=== PATIENT | male | born 1960 | race Caucasian/White ===

== ENCOUNTER 2017-03-07 17:31 | Inpatient (IN) | payer MEDICARE, MEDICAID ==
--- NOTE | 2017-03-07 17:42 | ER Document Report ---
ED Respiratory Problem - General Chief Complaint: Shortness Of Breath Stated Complaint: SHORTNESS OF BREATH Time Seen by Provider: 03/07/17 17:37 Notes: The patient is a 56-year-old male, past medical history COPD (has O2 at home, wears 4L O2 sometimes), coronary artery disease, congestive heart failure with ejection fraction of 25% status post defibrillator placement, current smoker, REBECCA (sometimes sleeps with CPAP), presents by EMS in respiratory distress. He was found to be low 80% on room air on his home 4L O2. EMS placed him on BiPAP with improvement of his respiratory status. They also provided him with a sublingual nitro with some improvement. Patient is a confirmed DNR and DNI ( paperwork at bedside). said that patient is off his Lasix for the past [address] Merida switched him to Metolazone 2.5 mg and he cannot afford the $50 co-pay. Patient denies chest pain, fevers, cough, calf swelling, nausea , vomiting or abdominal pain. TRAVEL OUTSIDE OF THE [place] IN LAST 30 DAYS: No - Related Data Allergies/Adverse Reactions: metformin [Metformin] Allergy (Unknown, Verified 07/02/16 21:11) Penicillins Allergy (Verified 07/02/16 21:11) ziprasidone HCl [From Geodon] Allergy (Verified 07/02/16 21:11) oxycodone HCl [From Percocet] Adverse Reaction (Mild, Verified 07/02/16 21:11) sleepy Home Medications: Current Home Medications Benztropine Mesylate [Cogentin 1 mg Tablet] 1 mg PO Q12 03/07/17 [History] Budesonide/Formoterol Fumarate [Symbicort HFA 80-4.5 mcg Inhaler 6.9 gm] 0 dose IH .SEE COMMENTS 03/07/17 [History] Carvedilol [Coreg 25 mg Tablet] 25 mg PO Q12 03/07/17 [History] Clopidogrel Bisulfate [Plavix 75 mg Tablet] 75 mg PO DAILY 03/07/17 [History] Doxepin HCl 150 mg PO QHS 03/07/17 [History] Fenofibrate Nanocrystallized [Fenofibrate] 145 mg PO DAILY 03/07/17 [History] Insulin Glargine,Hum.rec.anlog [Lantus Insulin 100 Unit/1 ml 10 ml] 0 units SQ .SEE COMMENTS 03/07/17 [History] Lamotrigine [Lamictal] 400 mg PO QHS 03/07/17 [History] Losartan Potassium [Cozaar 25 mg Tablet] 25 mg PO DAILY 03/07/17 [History] Meloxicam [Mobic 7.5 mg Tablet] 7.5 mg PO Q12 03/07/17 [History] Omeprazole 20 mg PO DAILY 03/07/17 [History] Pravastatin Sodium [Pravachol] 20 mg PO DAILY 03/07/17 [History] Quetiapine Fumarate [Seroquel] 200 mg PO QHS 03/07/17 [History] Ropinirole HCl [Requip] 0.5 mg PO Q8 03/07/17 [History] Trazodone HCl [Desyrel] 100 mg PO QHS 03/07/17 [History] Umeclidinium [place] [Incruse Ellipta] 0 dose IH .SEE COMMENTS 03/07/17 [History ] Past Medical History - General Information source: Patient, Emergency Med Personnel - Social History Smoking Status: Current Every Day Smoker Family History: Reviewed & Not Pertinent - Past Medical History Cardiac Medical History: Reports: Hx Congestive Heart Failure, Hx Heart Attack, Hx Hypercholesterolemia, Hx Hypertension Pulmonary Medical History: Reports: Hx Bronchitis, Hx COPD, Hx Sleep Apnea Endocrine Medical History: Reports: Hx Diabetes Mellitus Type 2 GI Medical History: Reports: Hx Gastroesophageal Reflux Disease Psychiatric Medical History: Reports: Hx Dementia, Hx Depression, Hx Post Traumatic Stress Disorder, Hx Schizophrenia - schizoeffective d/o Past Surgical History: Reports: Hx Cardiac Surgery - stents, defibrillator - Immunizations Hx Diphtheria, Pertussis, Tetanus Vaccination: Yes Review of Systems - Review of Systems Notes: REVIEW OF SYSTEMS: CONSTITUTIONAL: -fevers, -chills EENT: -eye pain, -difficulty swallowing, -nasal congestion CARDIOVASCULAR:-chest pain, -syncope. RESPIRATORY: -cough, +SOB GASTROINTESTINAL: -abdominal pain, - nausea, -vomiting, -diarrhea GENITOURINARY: -dysuria, -hematuria MUSCULOSKELETAL: -back pain, -neck pain SKIN: -rash or skin lesions. HEMATOLOGIC: -easy bruising or bleeding. LYMPHATIC: -swollen, enlarged glands. NEUROLOGICAL: -altered mental status or loss of consciousness, -headache, - neurologic symptoms PSYCHIATRIC: -anxiety, -depression. ALL OTHER SYSTEMS REVIEWED AND NEGATIVE. Physical Exam - Vital signs Vitals: Temp 98.2 F 03/07/17 17:31 - Notes Notes: PHYSICAL EXAMINATION: GENERAL: Well-appearing, well-nourished and in no acute distress. HEAD: Atraumatic, normocephalic. EYES: Pupils equal round and reactive to light, extraocular movements intact, sclera anicteric, conjunctiva are normal. ENT: nares patent, oropharynx clear without exudates. Moist mucous membranes. NECK: Normal range of motion, supple without lymphadenopathy LUNGS: Tachypnea. Decreased breath sounds in all lung spence. HEART: Regular rate and rhythm without murmurs ABDOMEN: Soft, nontender, normoactive bowel sounds. No guarding, no rebound. No masses appreciated. EXTREMITIES: 1+ peripheral edema. Normal range of motion. No cyanosis. NEUROLOGICAL: Cranial nerves grossly intact. Normal speech, normal gait. Normal sensory and motor exams. PSYCH: Normal mood, normal affect. SKIN: Warm, Dry, normal turgor, no rashes or lesions noted. Course - Re-evaluation Re-evalutation: Patient seen immediately on arrival due to respiratory distress. Patient placed on BiPAP with improvement of his respiratory status. He received nitro by EMS. Patient's blood pressure 120/90 on arrival, so will hold off on further nitro. There are rales on exam and he has 1+ pitting edema peripherally. He has not taken his Lasix for the past 30 days. His pro-BNP is very elevated, above his baseline, but the rest of his labs do not show any concerning abnormalities. Chest x-ray shows mild CHF. His 40 mg Lasix was provided to him IV. Patient's x-ray does not show any infiltrate and his VBG is normal. Patient confirms that he is DNR and DNI. 03/07/17 20:[address] Sotelo (Hospitalist) and he is requesting repeat troponin. Patient did not have any chest pain and EKG does not show any active ischemia. 03/07/17 22:51 Repeat troponin is negative. Spoke to Dr. Sotelo and will admit patient to [facility] as Inpatient. - Vital Signs Vital signs: Temp Pulse Resp BP Pulse Ox 98.2 F 12 120/96 H 99 03/07/17 17:31 03/07/17 21:01 03/07/17 21:01 03/07/17 21:01 - Laboratory Result Diagrams: 03/07/17 17:43 03/07/17 17:43 Laboratory results interpreted by me: 03/07/17 03/07/17 03/07/17 17:43 17:43 17:43 RBC 4.31 L RDW 17.0 H PT 17.4 H BUN 32 H Glucose 157 H Total Bilirubin 1.6 H Direct Bilirubin 1.2 H ALT 99 H NT-Pro-B Natriuret Pep 03/07/17 17:43 RBC RDW PT BUN Glucose Total Bilirubin Direct Bilirubin ALT NT-Pro-B Natriuret Pep 13895 H - Diagnostic Test Radiology reviewed: Image reviewed, Reports reviewed Radiology results interpreted by me: CXR: mild CHF - EKG Interpretation by Me EKG shows normal: Sinus rhythm, Perry, Intervals, QRS Complexes Rate: Normal When compared to previous EKG there are: No significant change Critical Care Note - Critical Care Note Total time excluding time spent on procedures (mins): 45 Discharge - Discharge Clinical Impression: Hypoxia Acute exacerbation of CHF (congestive heart failure) Qualifiers: Congestive heart failure type: unspecified congestive heart failure type Qualified Code(s): I50.9 - Heart failure, unspecified Condition: Stable Disposition: ADMITTED INPATIENT Admitting Provider: Hospitalist - Deepak Unit Admitted: IMCU Referrals: FLASH STALLWORTH MD [Primary Care Provider] - Follow up as needed
[2017-03-07 17:57] LABS: ABSOLUTE BASOPHILS # (AUTO) 0.1 10^3/uL (0.0-0.2); ABSOLUTE EOSINOPHILS # (AUTO) 0.1 10^3/uL (0.0-0.6); ABSOLUTE LYMPHOCYTES (AUTO) 2.3 10^3/uL (0.5-4.7); ABSOLUTE MONOCYTES (AUTO) 0.8 10^3/uL (0.1-1.4); ABSOLUTE NEUT (AUTO) 4.4 10^3/uL (1.7-8.2); BASOPHILS % (AUTO) 1.1 % (0-2); EOSINOPHILS % (AUTO) 1.8 % (0-6); HEMATOCRIT 41.2 % (37.9-51.0); HEMOGLOBIN 13.7 g/dL (13.5-17.0); HGB HCT DIFFERENCE -0.1; LYMPHOCYTES % (AUTO) 29.6 % (13-45); MEAN CORPUSCULAR HEMOGLOBIN 31.8 pg (27.0-33.4); MEAN CORPUSCULAR HGB CONC 33.2 g/dL (32.0-36.0); MEAN CORPUSCULAR VOLUME 96 fl (80-97); MONOCYTES % (AUTO) 10.1 % (3-13); RED BLOOD COUNT 4.31 10^6/uL (4.35-5.55); SEGMENTED NEUTROPHILS % (AUTO) 57.4 % (42-78); WHITE BLOOD COUNT 7.7 10^3/uL (4.0-10.5)
[2017-03-07 18:09] LABS: PROTHROMBIN TIME 17.4 SEC (11.4-15.4)
[2017-03-07 18:13] LABS: ALANINE AMINOTRANSFERASE 99 U/L (21-72); ALBUMIN 3.5 g/dL (3.5-5.0); ALKALINE PHOSPHATASE 46 U/L (38-126); ANION GAP 8 (5-19); ASPARTATE AMINO TRANSFERASE 39 U/L (17-59); BILIRUBIN,DIRECT 1.2 mg/dL (0.0-0.4); BILIRUBIN,TOTAL 1.6 mg/dL (0.2-1.3); BLOOD UREA NITROGEN 32 mg/dL (7-20); CALCIUM 8.9 mg/dL (8.4-10.2); CARBON DIOXIDE 25 mmol/L (22-30); CHLORIDE 104 mmol/L (98-107); CREATINE KINASE 108 U/L (55-170); GLUCOSE 157 mg/dL (75-110); LIPASE 47.2 U/L (23-300); POTASSIUM 4.5 mmol/L (3.6-5.0); TOTAL PROTEIN 6.5 g/dL (6.3-8.2)
[2017-03-07 18:27] LABS: TROPONIN I < 0.012 ng/mL
[2017-03-07] MEDS ORDERED: FUROSEMIDE INJ/PF 40 MG/4 ML SDV IV ONE (18:55)
[2017-03-07 19:15] LABS: VENOUS BLOOD BASE EXCESS -1.5 mmol/L; VENOUS BLOOD HCO3 22.6 mmol/L (20-32); VENOUS BLOOD PCO2 36.1 mmHg (35-63); VENOUS BLOOD PH 7.41 (7.30-7.42)
--- NOTE | 2017-03-07 20:19 | EKG REPORT ---
SEVERITY:- ABNORMAL ECG - SINUS RHYTHM FIRST DEGREE AV BLOCK PROBABLE LEFT ATRIAL ABNORMALITY ABNORMAL T, CONSIDER ISCHEMIA, LATERAL LEADS : Confirmed by: Lane Leon MD 07-Mar-2017 20:19:07
[2017-03-07] MEDS ORDERED: MAGNESIUM HYDROXIDE SUSP 30 ML UDCUP PO PRN (22:49)
[2017-03-07] MEDS ORDERED: ENALAPRILAT DIHYDRATE INJ/PF 1.25 MG/1 ML SDV IV PRN (22:49)
[2017-03-07] MEDS ORDERED: MAG HYDROX/AL HYDROX/SIMETH SUSP 30 ML UDCUP PO PRN (22:49)
[2017-03-07] MEDS ORDERED: DEXTROSE 50%-WATER 25 GM/50 ML DISP.SYRIN IV PRN ×2 (22:54)
[2017-03-07] MEDS ORDERED: GLUCAGON,HUMAN RECOMB 1 MG INJ IM PRN (22:54)
[2017-03-07] MEDS ORDERED: DEXTROSE 40% GEL 15 GM TUBE PO PRN ×2 (22:54)
[2017-03-07] MEDS ORDERED: DOXEPIN HCL 25 MG CAPSULE PO SCH (23:00)
--- NOTE | 2017-03-08 03:33 | PDOC H&P ---
History of Present Illness Admission Date/PCP: 03/07/17 22:49 FLASH STALLWORTH MD Patient complains of: Shortness of breath History of Present Illness: NAVARRO TEAGUE is a 56 year old male with a past medical history of Parkinson's disease, oxygen dependent COPD, end-stage congestive heart failure with an ejection fraction of 25% status post AICD, depression, anxiety, polypharmacy and ongoing tobacco dependence. Patient been in his usual state of health until approximately 3 days ago noted exceptional worsening of baseline shortness of breath prompting him to seek evaluation in the emergency room he he is hypoxic and a BNP of 13,000. Denies chest pain nausea vomiting but has shortness of breath at rest. Patient admits recent change in medications as he is off Lasix and metolazone as he is unable to afford the co-pay. Past Medical History Cardiac Medical History: Reports: Congestive Heart Failure, Myocardial Infarction, Hyperlipidema, Hypertension Pulmonary Medical History: Reports: Bronchitis, Chronic Obstructive Pulmonary Disease (COPD), Sleep Apnea Endocrine Medical History: Reports: Diabetes Mellitus Type 2 GI Medical History: Reports: Gastroesophageal Reflux Disease Psychiatric Medical History: Reports: Dementia, Depression, Post Traumatic Stress Disorder, Tobacco Dependency, Other Psychiatric History Note: Polypharmacy Past Surgical History Past Surgical History: Reports: Pacemaker Social History Information Source: Patient, Emergency Med Personnel, [facility] Records Lives with: Spouse/Significant other Smoking Status: Current Every Day Smoker Cigarettes Packs Per Day: 2 Frequency of Alcohol Use: Occasional Hx Recreational Drug Use: No Drugs: None, Other - Opiate 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 - Advance Directive Resuscitation Status: DNR/DNI Family History Family History: COPD, Hypertension Parental Family History Reviewed: Yes Children Family History Reviewed: Yes Sibling(s) Family History Reviewed.: Yes Medication/Allergy Home Medications: Benztropine Mesylate [Cogentin 1 mg Tablet] 1 mg PO Q12 03/07/17 Budesonide/Formoterol Fumarate [Symbicort HFA 80-4.5 mcg Inhaler 6.9 gm] 0 dose IH .SEE COMMENTS 03/07/17 Carvedilol [Coreg 25 mg Tablet] 25 mg PO Q12 03/07/17 Clopidogrel Bisulfate [Plavix 75 mg Tablet] 75 mg PO DAILY 03/07/17 Doxepin HCl 150 mg PO QHS 03/07/17 Fenofibrate Nanocrystallized [Fenofibrate] 145 mg PO DAILY 03/07/17 Insulin Glargine,Hum.rec.anlog [Lantus Insulin 100 Unit/1 ml 10 ml] 0 units SQ .SEE COMMENTS 03/07/17 Lamotrigine [Lamictal] 400 mg PO QHS 03/07/17 Losartan Potassium [Cozaar 25 mg Tablet] 25 mg PO DAILY 03/07/17 Meloxicam [Mobic 7.5 mg Tablet] 7.5 mg PO Q12 03/07/17 Omeprazole 20 mg PO DAILY 03/07/17 Pravastatin Sodium [Pravachol] 20 mg PO DAILY 03/07/17 Quetiapine Fumarate [Seroquel] 200 mg PO QHS 03/07/17 Ropinirole HCl [Requip] 0.5 mg PO Q8 03/07/17 Trazodone HCl [Desyrel] 100 mg PO QHS 03/07/17 Umeclidinium [place] [Incruse Ellipta] 0 dose IH .SEE COMMENTS 03/07/17 Allergies/Adverse Reactions: metformin [Metformin] Allergy (Unknown, Verified 07/02/16 21:11) Penicillins Allergy (Verified 07/02/16 21:11) ziprasidone HCl [From Geodon] Allergy (Verified 07/02/16 21:11) oxycodone HCl [From Percocet] Adverse Reaction (Mild, Verified 07/02/16 21:11) sleepy Review of Systems ROS unobtainable: Due to mental status, Other - Shortness of breath on BiPAP Physical Exam Vital Signs: Temp Pulse Resp BP Pulse Ox 97.5 F 89 23 H 124/87 H 98 03/08/17 00:37 03/08/17 01:15 03/08/17 00:51 03/08/17 00:37 03/08/17 00:51 Intake & Output 03/06/17 03/07/17 03/08/17 11:59 11:59 11:59 Weight 88.6 kg General appearance: PRESENT: disheveled, severe distress Head exam: PRESENT: atraumatic, normocephalic Eye exam: PRESENT: conjunctiva pink, EOMI, PERRLA. ABSENT: scleral icterus Ear exam: PRESENT: normal external ear exam Mouth exam: PRESENT: moist, tongue midline Neck exam: PRESENT: JVD. ABSENT: carotid bruit, lymphadenopathy, thyromegaly Respiratory exam: PRESENT: accessory muscle use, crackles, decreased breath sounds, prolonged expiratory phas, retraction, tachypnea. ABSENT: chest wall tenderness, clear to auscultation fermín Cardiovascular exam: PRESENT: RRR. ABSENT: diastolic murmur, rubs, systolic murmur Pulses: PRESENT: normal dorsalis pedis pul Vascular exam: PRESENT: normal capillary refill GI/Abdominal exam: PRESENT: ascites, hypoactive bowel sounds, normal bowel sounds, soft. ABSENT: distended, guarding, mass, organolmegaly, rebound, tenderness Rectal exam: PRESENT: deferred Extremities exam: PRESENT: +1 edema Neurological exam: PRESENT: altered, awake, oriented to person, CN II-XII grossly intact Psychiatric exam: PRESENT: appropriate affect, normal mood. ABSENT: homicidal ideation, suicidal ideation Skin exam: PRESENT: dry, intact, warm. ABSENT: cyanosis, rash Assessment & Plan - Diagnosis (1) Acute exacerbation of CHF (congestive heart failure) Qualifiers: Congestive heart failure type: unspecified congestive heart failure type Qualified Code(s): I50.9 - Heart failure, unspecified Is this a current diagnosis for this admission?: Yes Plan: Patient appears mildly volume overloaded suspect hypoxia mediated exacerbation. Continue BiPAP support follow-up serial cardiac enzymes and gentle diuresis (2) Hypoxia Is this a current diagnosis for this admission?: Yes Plan: Supplemental oxygen, albuterol and Atrovent, BiPAP patient is DNR (3) Acute on chronic respiratory failure with hypoxemia Is this a current diagnosis for this admission?: Yes Plan: Possible acute on chronic bronchitis will add doxycycline to the above plan. (4) Tobacco abuse Is this a current diagnosis for this admission?: Yes Plan: Tobacco Dependence patient received tobacco cessation counseling and offered nicotine replacement options (5) Type I diabetes mellitus Qualifiers: Diabetes mellitus complication status: with unspecified complications Qualified Code(s): E10.8 - Type 1 diabetes mellitus with unspecified complications Is this a current diagnosis for this admission?: Yes Plan: Long-acting insulin with sliding scale coverage, diabetic diet - Time Time Spent: 50 to 70 Minutes - Inpatient Certification Medical Necessity: Need Close Monitoring Due to Risk of Patient Decompensation
[2017-03-08] MEDS: HEPARIN SOD (PORCINE) 5,000 UNIT/ML 1 ML SYRINGE SUBCUT SCH ×3 (06:11→22:33)
[2017-03-08 06:21] LABS: ABSOLUTE BASOPHILS # (AUTO) 0.1 10^3/uL (0.0-0.2); ABSOLUTE EOSINOPHILS # (AUTO) 0.2 10^3/uL (0.0-0.6); ABSOLUTE LYMPHOCYTES (AUTO) 2.2 10^3/uL (0.5-4.7); ABSOLUTE MONOCYTES (AUTO) 0.7 10^3/uL (0.1-1.4); ABSOLUTE NEUT (AUTO) 4.7 10^3/uL (1.7-8.2); BASOPHILS % (AUTO) 0.7 % (0-2); EOSINOPHILS % (AUTO) 2.5 % (0-6); HEMOGLOBIN 13.5 g/dL (13.5-17.0); HGB HCT DIFFERENCE -0.5; LYMPHOCYTES % (AUTO) 28.1 % (13-45); MEAN CORPUSCULAR HEMOGLOBIN 31.6 pg (27.0-33.4); MEAN CORPUSCULAR HGB CONC 32.9 g/dL (32.0-36.0); MEAN CORPUSCULAR VOLUME 96 fl (80-97); MONOCYTES % (AUTO) 9.1 % (3-13); RED BLOOD COUNT 4.27 10^6/uL (4.35-5.55); RED CELL DISTRIBUTION WIDTH 17.2 % (11.5-14.0); SEGMENTED NEUTROPHILS % (AUTO) 59.6 % (42-78); WHITE BLOOD COUNT 7.9 10^3/uL (4.0-10.5)
[2017-03-08 06:37] LABS: ANION GAP 7 (5-19); BLOOD UREA NITROGEN 31 mg/dL (7-20); CALCIUM 8.7 mg/dL (8.4-10.2); CARBON DIOXIDE 26 mmol/L (22-30); CHLORIDE 104 mmol/L (98-107); CREATININE RESULT 1.05 mg/dL (0.52-1.25); GLUCOSE 138 mg/dL (75-110); MAGNESIUM 1.9 mg/dL (1.6-2.3); SODIUM 136.9 mmol/L (137-145)
[2017-03-08] MEDS: FUROSEMIDE INJ/PF 40 MG/4 ML SDV IV SCH ×2 (10:10→22:32)
[2017-03-08] MEDS: POTASSIUM CHLORIDE 10 MEQ TABLET.SA PO SCH ×2 (10:11→22:32)
[2017-03-08] MEDS: BENZTROPINE MESYLATE 1 MG TABLET PO SCH ×2 (10:12→22:32)
[2017-03-08] MEDS: FENOFIBRATE NANOCRYSTALLIZED 145 MG TABLET PO SCH (10:12)
[2017-03-08] MEDS: CARVEDILOL 12.5 MG TABLET PO SCH ×2 (10:12→22:32)
[2017-03-08] MEDS: DOCUSATE SODIUM 100 MG CAPSULE PO SCH (10:13)
[2017-03-08] MEDS: CLOPIDOGREL BISULFATE 75 MG TABLET PO SCH (10:13)
--- NOTE | 2017-03-08 17:03 | RADIOLOGY REPORT (SQ) ---
EXAM DESCRIPTION: CHEST SINGLE VIEW COMPLETED DATE/TIME: 03/07/2017 5:59 pm REASON FOR STUDY: SOB COMPARISON: 07/07/2016 NUMBER OF VIEWS: One view. TECHNIQUE: Single frontal radiographic view of the chest acquired. LIMITATIONS: None. FINDINGS: LUNGS AND PLEURA: No opacities, masses or pneumothorax. No pleural effusion. MEDIASTINUM AND HILAR STRUCTURES: No masses or contour abnormality. HEART AND VASCULATURE: Cardiac enlargement. Vascular congestion. BONES: No acute findings. HARDWARE: STABLE. OTHER: No other significant finding. IMPRESSION: CARDIAC ENLARGEMENT. VASCULAR CONGESTION. TECHNICAL DOCUMENTATION: JOB ID: [id number] [employer]- All Rights Reserved
--- NOTE | 2017-03-08 17:15 | PDOC PROGRESS REPORT ---
Subjective Progress Note for:: 03/08/17 Subjective:: The patient is very angry this morning. He is refusing to speak to his and his is refusing to speak to him. He tells me that the emergency room doctor said that he was going to send him home last night and he did not he is very angry about this. He said that he has had trouble breathing and that because he felt better the emergency room and felt that he should go home. Physical Exam Vital Signs: Temp Pulse Resp BP Pulse Ox 97.5 F 86 24 H 114/77 96 03/08/17 16:00 03/08/17 16:00 03/08/17 16:00 03/08/17 16:00 03/08/17 16:00 Intake & Output 03/07/17 03/08/17 03/09/17 06:59 06:59 06:59 Intake Total 157 118 Output Total 1400 100 Balance -1243 18 Weight 88.6 kg GENERAL: This is a well-developed and nourished appearing white male resting in bed currently on bilevel Pap in no acute distress. HEART: Regular rate and rhythm. 2/6 murmurs. No rubs or gallops. LUNGS: Difficult to auscultate secondary to the bilevel Pap. However the patient sounds coarse Bilaterally with equal rise and fall of the chest. ABDOMEN: Soft, nontender, nondistended with normoactive bowel sounds EXTREMETIES: No clubbing, cyanosis. 1-2+ pitting edema.. 1+ peripheral pulses bilaterally. NEURO: Awake, alert and oriented 3. Cranial nerves II through XII are grossly intact. Results Laboratory Results: 03/08/17 05:45 03/08/17 05:45 03/08/17 03/08/17 05:45 05:45 WBC 7.9 RBC 4.27 L Hgb 13.5 Hct 41.0 MCV 96 MCH 31.6 MCHC 32.9 RDW 17.2 H Plt Count 211 Seg Neutrophils % 59.6 Lymphocytes % 28.1 Monocytes % 9.1 Eosinophils % 2.5 Basophils % 0.7 Absolute Neutrophils 4.7 Absolute Lymphocytes 2.2 Absolute Monocytes 0.7 Absolute Eosinophils 0.2 Absolute Basophils 0.1 Sodium 136.9 L Potassium 4.0 Chloride 104 Carbon Dioxide 26 Anion Gap 7 BUN 31 H Creatinine 1.05 Est GFR ( Amer) > 60 Est GFR (Non-Af Amer) > 60 Glucose 138 H Calcium 8.7 Magnesium 1.9 Assessment & Plan - Diagnosis (1) Acute on chronic respiratory failure with hypoxemia Is this a current diagnosis for this admission?: Yes Plan: Patient has respiratory failure secondary to heart failure and underlying COPD. Continue nebulizer treatments. Continue to wean off of bilevel Pap as tolerated. At baseline the patient is on 3 L of oxygen via nasal cannula. (2) Acute exacerbation of CHF (congestive heart failure) Qualifiers: Congestive heart failure type: unspecified congestive heart failure type Qualified Code(s): I50.9 - Heart failure, unspecified Is this a current diagnosis for this admission?: Yes Plan: This is acute on chronic systolic heart failure. Continue Lasix 40 mg p.o. IV twice daily. Continue bilevel Pap. Continue as needed enalaprilat. Continue statin. Continue Coreg. Resume losartan in the morning if appropriate. (3) COPD (chronic obstructive pulmonary disease) Qualifiers: COPD type: unspecified COPD Qualified Code(s): J44.9 - Chronic obstructive pulmonary disease, unspecified Plan: Continue various inhalers. Continue bilevel Pap. (4) GERD (gastroesophageal reflux disease) Plan: Continue omeprazole (5) CAD (coronary atherosclerotic disease) Plan: Continue carvedilol. Patient is on IV enalaprilat. Continue fenofibrate continue statin (6) PTSD (post-traumatic stress disorder) Plan: Continue Lamictal and Seroquel and Cogentin (7) Schizoaffective disorder Qualifiers: Schizoaffective disorder type: unspecified Qualified Code(s): F25.9 - Schizoaffective disorder, unspecified Plan: Continue Lamictal and Seroquel and Cogentin (8) Tobacco abuse Is this a current diagnosis for this admission?: Yes Plan: Smoking cessation is advised (9) Type I diabetes mellitus Qualifiers: Diabetes mellitus complication status: with unspecified complications Qualified Code(s): E10.8 - Type 1 diabetes mellitus with unspecified complications Is this a current diagnosis for this admission?: Yes Plan: Continue sliding scale insulin, Lantus (10) Restless legs syndrome (RLS) Plan: Continue Requip (11) Dyslipidemia Plan: Continue statin - Time Time Spent with patient: 35 or more minutes - Inpatient Certification Based on my medical assessment, after consideration of the patient's comorbidities, presenting symptoms, or acuity I expect that the services needed warrant INPATIENT care.: Yes Medical Necessity: Need Close Monitoring Due to Risk of Patient Decompensation
[2017-03-08] MEDS ORDERED: LAMOTRIGINE 100 MG TABLET PO SCH (22:00)
[2017-03-08] MEDS ORDERED: ATORVASTATIN CALCIUM 10 MG TABLET PO SCH (22:00)
[2017-03-08] MEDS: ROPINIROLE HCL 0.25 MG TABLET PO SCH (22:32)
[2017-03-09 05:40] LABS: ABSOLUTE BASOPHILS # (AUTO) 0.1 10^3/uL (0.0-0.2); ABSOLUTE EOSINOPHILS # (AUTO) 0.2 10^3/uL (0.0-0.6); ABSOLUTE LYMPHOCYTES (AUTO) 2.2 10^3/uL (0.5-4.7); ABSOLUTE MONOCYTES (AUTO) 0.8 10^3/uL (0.1-1.4); ABSOLUTE NEUT (AUTO) 4.2 10^3/uL (1.7-8.2); BASOPHILS % (AUTO) 1.4 % (0-2); EOSINOPHILS % (AUTO) 2.3 % (0-6); HEMATOCRIT 41.2 % (37.9-51.0); HEMOGLOBIN 13.6 g/dL (13.5-17.0); HGB HCT DIFFERENCE -0.4; LYMPHOCYTES % (AUTO) 29.4 % (13-45); MEAN CORPUSCULAR HEMOGLOBIN 31.5 pg (27.0-33.4); MEAN CORPUSCULAR HGB CONC 32.9 g/dL (32.0-36.0); MEAN CORPUSCULAR VOLUME 96 fl (80-97); MONOCYTES % (AUTO) 10.8 % (3-13); SEGMENTED NEUTROPHILS % (AUTO) 56.1 % (42-78); WHITE BLOOD COUNT 7.5 10^3/uL (4.0-10.5)
[2017-03-09 05:54] LABS: ANION GAP 7 (5-19); BLOOD UREA NITROGEN 35 mg/dL (7-20); CALCIUM 9.4 mg/dL (8.4-10.2); CARBON DIOXIDE 31 mmol/L (22-30); CHLORIDE 101 mmol/L (98-107); CREATININE RESULT 1.28 mg/dL (0.52-1.25); GLUCOSE 130 mg/dL (75-110); MAGNESIUM 2.1 mg/dL (1.6-2.3); SODIUM 138.5 mmol/L (137-145)
[2017-03-09] MEDS: HEPARIN SOD (PORCINE) 5,000 UNIT/ML 1 ML SYRINGE SUBCUT SCH ×2 (06:27→13:16)
[2017-03-09] MEDS: ROPINIROLE HCL 0.25 MG TABLET PO SCH ×2 (06:28→13:16)
[2017-03-09] MEDS: FUROSEMIDE INJ/PF 40 MG/4 ML SDV IV SCH (09:44)
[2017-03-09] MEDS: FENOFIBRATE NANOCRYSTALLIZED 145 MG TABLET PO SCH (09:45)
[2017-03-09] MEDS: DOCUSATE SODIUM 100 MG CAPSULE PO SCH (09:45)
[2017-03-09] MEDS: CLOPIDOGREL BISULFATE 75 MG TABLET PO SCH (09:46)
[2017-03-09] MEDS: BENZTROPINE MESYLATE 1 MG TABLET PO SCH (09:46)
[2017-03-09] MEDS: POTASSIUM CHLORIDE 10 MEQ TABLET.SA PO SCH (09:46)
[2017-03-09] MEDS: CARVEDILOL 12.5 MG TABLET PO SCH (09:46)
--- NOTE | 2017-03-09 13:15 | PDOC DISCHARGE SUMMARY ---
General - Admit/Disc Date/PCP Admission Date/Primary Care Provider: 03/07/17 22:49 FLASH STALLWORTH MD Discharge Date: 03/09/17 - Discharge Diagnosis (1) Acute exacerbation of CHF (congestive heart failure) Is this a current diagnosis for this admission?: Yes (2) Acute exacerbation of chronic obstructive pulmonary disease (COPD) Is this a current diagnosis for this admission?: No (3) Acute kidney injury superimposed on chronic kidney disease Is this a current diagnosis for this admission?: Yes Summary: Secondary to Diuresis. - Additional Information Resuscitation Status: DNR/DNI Discharge Diet: Cardiac, Diabetic Discharge Activity: Activity As Tolerated, Balance Activity w/Rest, Weigh Daily Home Medications: Benztropine Mesylate [Cogentin 1 mg Tablet] 1 mg PO BID 03/08/17 Carvedilol [Coreg 25 mg Tablet] 25 mg PO Q12 03/08/17 Clopidogrel Bisulfate [Plavix 75 mg Tablet] 75 mg PO DAILY 03/08/17 Doxepin HCl 150 mg PO QHS 03/08/17 Fenofibrate Nanocrystallized [Fenofibrate] 145 mg PO DAILY 03/08/17 Lamotrigine [Lamictal] 400 mg PO QHS 03/08/17 Losartan Potassium [Cozaar 25 mg Tablet] 25 mg PO DAILY 03/08/17 Meloxicam [Mobic 7.5 mg Tablet] 7.5 mg PO Q12 03/08/17 Omeprazole 20 mg PO DAILY 03/08/17 Pravastatin Sodium [Pravachol] 20 mg PO DAILY 03/08/17 Quetiapine Fumarate [Seroquel] 200 mg PO QHS 03/08/17 Ropinirole HCl [Requip] 0.5 mg PO Q8 03/08/17 Trazodone HCl [Desyrel] 100 mg PO QHS 03/08/17 Atorvastatin Calcium [Lipitor 10 mg Tablet] 5 mg PO QHS tablet 03/09/17 Benztropine Mesylate [Cogentin 1 mg Tablet] 1 mg PO Q12 tablet 03/09/17 Carvedilol [Coreg 12.5 mg Tablet] 25 mg PO Q12 tablet 03/09/17 Clopidogrel Bisulfate [Plavix 75 mg Tablet] 75 mg PO DAILY tablet 03/09/17 Doxepin HCl [[place] 25 mg Capsule] 150 mg PO QHS capsule 03/09/17 Fenofibrate Nanocrystallized [Tricor 145 mg Tablet] 145 mg PO DAILY tablet Furosemide [Lasix 40 mg Tablet] 40 mg PO QAM #30 tablet 03/09/17 History of Present Illness Patient complains of: Shortness of Breath History of Present Illness: NAVARRO TEAGUE is a 56 year old male who presented to the hospital with complaint of shortness of breath. Hospital Course Hospital Course: NAVARRO TEAGUE is a 56 year old male who presented to the hospital with complaint of shortness of breath. Pt was found to have Acute on Chronic Mild Systolic Exacerbation of CHF. Pt reported that he has been out of his lasix for 1 month. Pt states that his primary would not refill medication due to pt not keeping follow up appointments. Pt was placed on IV Lasix over 24 hours and respiratory function greatly improved. Pt initially was thought to have COPD exacerbation but was ruled out. No further issues encountered. Physical Exam Vital Signs: Temp Pulse Resp BP Pulse Ox 97.8 F 76 18 111/73 95 03/09/17 11:30 03/09/17 11:30 03/09/17 11:30 03/09/17 11:30 03/09/17 11:30 Intake & Output 03/08/17 03/09/17 03/10/17 06:59 06:59 06:59 Intake Total 157 760 360 Output Total 1400 3275 650 Balance -1243 -2515 -290 Weight 88.6 kg 83.8 kg General appearance: PRESENT: no acute distress, cooperative Head exam: PRESENT: atraumatic, normocephalic Eye exam: PRESENT: conjunctiva pink, EOMI Mouth exam: PRESENT: moist, tongue midline Neck exam: PRESENT: full ROM Respiratory exam: PRESENT: clear to auscultation fermín. ABSENT: rales, rhonchi, wheezes Cardiovascular exam: PRESENT: RRR. ABSENT: diastolic murmur, rubs, systolic murmur Pulses: PRESENT: normal dorsalis pedis pul GI/Abdominal exam: PRESENT: normal bowel sounds, soft. ABSENT: distended, guarding, mass, organolmegaly, rebound, tenderness Extremities exam: PRESENT: full ROM. ABSENT: calf tenderness, clubbing, pedal edema Neurological exam: PRESENT: alert, awake, oriented to person, oriented to place , oriented to time Skin exam: PRESENT: dry, warm Results Laboratory Results: 03/09/17 05:18 03/09/17 05:18 03/09/17 03/09/17 05:18 05:18 WBC 7.5 RBC 4.30 L Hgb 13.6 Hct 41.2 MCV 96 MCH 31.5 MCHC 32.9 RDW 17.0 H Plt Count 225 Seg Neutrophils % 56.1 Lymphocytes % 29.4 Monocytes % 10.8 Eosinophils % 2.3 Basophils % 1.4 Absolute Neutrophils 4.2 Absolute Lymphocytes 2.2 Absolute Monocytes 0.8 Absolute Eosinophils 0.2 Absolute Basophils 0.1 Sodium 138.5 Potassium 4.0 Chloride 101 Carbon Dioxide 31 H Anion Gap 7 BUN 35 H Creatinine 1.28 H Est GFR ( Amer) > 60 Est GFR (Non-Af Amer) 58 L Glucose 130 H Calcium 9.4 Magnesium 2.1 Impressions: Chest X-Ray 03/07/17 17:38 IMPRESSION: CARDIAC ENLARGEMENT. VASCULAR CONGESTION. Plan Time Spent: Less than 30 Minutes
[2017-03-09 14:05] VITALS: BP 114/77
== END 2017-03-09 15:07 | disposition home or self-care (01) | DRG 291 ==
LOC: ER 17:31 → EH 22:49 → UNDOADMIN 23:06 → 3S 03-08 00:36
PROVIDERS: ADMIT Internal Medicine; ATTEND Internal Medicine
PROC: 5A09457 Assistance with Respiratory Ventilation, 24-96 Consecutive Hours, Continuous Positive Airway Pressure (ICD-10-PCS; principal; 2017-03-07)
DX: I50.23 Acute on chronic systolic (congestive) heart failure (principal); J96.21 Acute and chronic respiratory failure with hypoxia; N17.9 Acute kidney failure, unspecified; I13.0 Hypertensive heart and chronic kidney disease with heart failure and stage 1 through stage 4 chronic kidney disease, or unspecified chronic kidney disease; Z66 Do not resuscitate; N18.9 Chronic kidney disease, unspecified; J44.9 Chronic obstructive pulmonary disease, unspecified; G20 Parkinson's disease; F32.9 Major depressive disorder, single episode, unspecified; F41.9 Anxiety disorder, unspecified; F17.210 Nicotine dependence, cigarettes, uncomplicated; K21.9 Gastro-esophageal reflux disease without esophagitis; F43.10 Post-traumatic stress disorder, unspecified; E11.22 Type 2 diabetes mellitus with diabetic chronic kidney disease; F02.80 Dementia in other diseases classified elsewhere, unspecified severity, without behavioral disturbance, psychotic disturbance, mood disturbance, and anxiety; E78.5 Hyperlipidemia, unspecified; T50.1X6A Underdosing of loop [high-ceiling] diuretics, initial encounter; T50.2X6A Underdosing of carbonic-anhydrase inhibitors, benzothiadiazides and other diuretics, initial encounter; I25.10 Atherosclerotic heart disease of native coronary artery without angina pectoris; F25.9 Schizoaffective disorder, unspecified; G25.81 Restless legs syndrome; G47.33 Obstructive sleep apnea (adult) (pediatric); Z91.120 Patient's intentional underdosing of medication regimen due to financial hardship; I25.2 Old myocardial infarction; Z95.5 Presence of coronary angioplasty implant and graft; Z79.899 Other long term (current) drug therapy; Z91.128 Patient's intentional underdosing of medication regimen for other reason; Z99.81 Dependence on supplemental oxygen; Z95.810 Presence of automatic (implantable) cardiac defibrillator; Z79.4 Long term (current) use of insulin; Z88.8 Allergy status to other drugs, medicaments and biological substances; Z88.6 Allergy status to analgesic agent; Z88.0 Allergy status to penicillin; Z83.6 Family history of other diseases of the respiratory system; Z82.49 Family history of ischemic heart disease and other diseases of the circulatory system
CPT/HCPCS: 36415; 71010; 80048; 80053; 82550; 82803; 82962; 83605; 83690; 83735; 83880; 84443; 84484; 85025; 85610; 85730; 87040; 87077; 87186; 93005; 93010; 94660; 96374; 99291; J1644; J1940; J3490

== ENCOUNTER 2017-09-17 11:08 | Inpatient (IN) | payer MEDICARE, MEDICAID ==
[2017-09-17] MEDS ORDERED: FENTANYL CITRATE INJ/PF 100 MCG/2 ML AMPUL IV ONE ×2 (11:24→15:27)
[2017-09-17] MEDS ORDERED: NORMAL SALINE 1000 ML 1,000 ML IV ONE (11:24)
[2017-09-17 11:57] LABS: ABSOLUTE BASOPHILS # (AUTO) 0.1 10^3/uL (0.0-0.2); ABSOLUTE LYMPHOCYTES (AUTO) 1.6 10^3/uL (0.5-4.7); ABSOLUTE MONOCYTES (AUTO) 1.1 10^3/uL (0.1-1.4); ABSOLUTE NEUT (AUTO) 7.9 10^3/uL (1.7-8.2); BASOPHILS % (AUTO) 0.7 % (0-2); EOSINOPHILS % (AUTO) 0.3 % (0-6); HEMATOCRIT 49.2 % (37.9-51.0); HEMOGLOBIN 16.3 g/dL (13.5-17.0); LYMPHOCYTES % (AUTO) 14.6 % (13-45); MEAN CORPUSCULAR HGB CONC 33.1 g/dL (32.0-36.0); MEAN CORPUSCULAR VOLUME 91 fl (80-97); MONOCYTES % (AUTO) 10.5 % (3-13); PLATELET COUNT 252 10^3/uL (150-450); RED BLOOD COUNT 5.42 10^6/uL (4.35-5.55); RED CELL DISTRIBUTION WIDTH 16.2 % (11.5-14.0); SEGMENTED NEUTROPHILS % (AUTO) 73.9 % (42-78); TOTAL CELLS COUNTED % (AUTO) 100 %; WHITE BLOOD COUNT 10.7 10^3/uL (4.0-10.5)
[2017-09-17 12:19] LABS: ALANINE AMINOTRANSFERASE 36 U/L (21-72); ALBUMIN 3.7 g/dL (3.5-5.0); ALKALINE PHOSPHATASE 94 U/L (38-126); ANION GAP 12 (5-19); ASPARTATE AMINO TRANSFERASE 22 U/L (17-59); BILIRUBIN,DIRECT 0.9 mg/dL (0.0-0.4); BILIRUBIN,TOTAL 1.9 mg/dL (0.2-1.3); BLOOD UREA NITROGEN 23 mg/dL (7-20); CALCIUM 8.7 mg/dL (8.4-10.2); CARBON DIOXIDE 22 mmol/L (22-30); CHLORIDE 101 mmol/L (98-107); GLUCOSE 232 mg/dL (75-110); POTASSIUM 4.2 mmol/L (3.6-5.0)
--- NOTE | 2017-09-17 13:00 | EKG REPORT ---
SEVERITY:- ABNORMAL ECG - SINUS TACHYCARDIA VENTRICULAR PREMATURE COMPLEX PROBABLE LEFT ATRIAL ABNORMALITY BORDERLINE R WAVE PROGRESSION, ANTERIOR LEADS NONSPECIFIC T ABNORMALITIES, INFERIOR LEADS : Confirmed by: Lane Leon MD 17-Sep-2017 13:00:06
--- NOTE | 2017-09-17 13:08 | RADIOLOGY REPORT (SQ) ---
EXAM DESCRIPTION: CT ABD/PELVIS WITH IV ONLY COMPLETED DATE/TIME: 09/17/2017 12:50 pm REASON FOR STUDY: Abdominal pain rule out appendicitis COMPARISON: 02/21/2015 TECHNIQUE: CT scan of the abdomen and pelvis performed using helical scanning technique with dynamic intravenous contrast injection. No oral contrast. Images reviewed with lung, soft tissue, and bone windows. Reconstructed coronal and sagittal MPR images reviewed. Delayed images for evaluation of the urinary system also acquired. All images stored on PACS. All CT scanners at this facility use dose modulation, iterative reconstruction, and/or weight based d osing when appropriate to reduce radiation dose to as low as reasonably achievable (ALARA). [facility]: Dose Right [facility]: CareDose [facility]: Dose Right [facility]: Teradose 4D [facility]: [employer] CONTRAST TYPE AND DOSE: contrast/concentration: Isovue 370.00 mg/ml; Total Contrast Delivered: 99.0 ml; Total Saline Delivered: 62.0 ml RENAL FUNCTION: BUN 23 creatinine 1.1 RADIATION DOSE: CT Rad equipment meets quality standard of care and radiation dose reduction techniq ues were employed. CTDIvol: 13.4 - 17.7 mGy. DLP: 1766 mGy-cm.. LIMITATIONS: None. FINDINGS: LOWER CHEST: Cardiomegaly. Small pleural effusions. LIVER: Normal size. No masses. No dilated ducts. SPLEEN: Old granulomatous disease. PANCREAS: No masses. No significant calcifications. No adjacent inflammation or peripancreatic fluid collections. Pancreatic duct not dilated. GALLBLADDER: No identified stones by CT criteria. No inflammatory changes to suggest cholecystitis. ADRENAL GLANDS: No significant masses or asymmetry. RIGHT KIDNEY AND URETER: Geographic low attenuation in the cortex with relative sparing of the superi or and inferior poles. Proximal renal artery is patent. No significant calcifications. No hydrone phrosis or hydroureter. LEFT KIDNEY AND URETER: No solid masses. No significant calcifications. No hydronephrosis or hydr oureter. AORTA AND VESSELS: Mural thrombus in the aorta. No evidence of aneurysm or dissection. There is ext ensive disease in the right iliacs. RETROPERITONEUM: No retroperitoneal adenopathy, hemorrhage or masses. BOWEL AND PERITONEAL CAVITY: Mesenteric inflammation in the pelvis adjacent to the anastomosis and ad jacent segment of sigmoid colon containing diverticula. No organized fluid collection. APPENDIX: Normal. PELVIS: No mass. No free fluid. Normal bladder. ABDOMINAL WALL: No masses. No hernias. BONES: No significant or acute findings. OTHER: No other significant finding. IMPRESSION: 1. Abnormal appearance of the right kidney, most consistent with infarction or pyelonephritis. Recom mend correlation with urinalysis. 2. Sigmoid diverticulitis. TECHNICAL DOCUMENTATION: JOB ID: [id number] Quality ID # [id number]: Final reports with documentation of one or more dose reduction techniques (e.g., Au tomated exposure control, adjustment of the mA and/or kV according to patient size, use of iterative reconstruction technique) 2010 [employer]- All Rights Reserved Reading location - IP/workstation name: [email or web address]
[2017-09-17] MEDS ORDERED: HYDROMORPHONE HCL INJ/PF 2 MG/ML AMPULE IV ONE ×2 (13:36→14:41)
[2017-09-17 14:59] LABS: APPEARANCE,URINE CLEAR; BILIRUBIN,URINE NEGATIVE (NEGATIVE); COLOR,URINE YELLOW; GLUCOSE, URINE 50 mg/dL (NEGATIVE); KETONES,URINE NEGATIVE (NEGATIVE); LEUKOCYTE ESTERASE,URINE NEGATIVE (NEGATIVE); NITRITE,URINE NEGATIVE (NEGATIVE); PROTEIN,URINE >=500 mg/dL (NEGATIVE); URINE SPECIFIC GRAVITY 1.033
--- NOTE | 2017-09-17 15:32 | ER Document Report ---
ED GI/ - General Chief Complaint: Flank Pain Stated Complaint: FLANK PAIN Time Seen by Provider: 09/17/17 11:24 Mode of Arrival: Stretcher Information source: Patient, Relative, Legal Guardian TRAVEL OUTSIDE OF THE [place] IN LAST 30 DAYS: No - HPI Patient complains to provider of: Abdominal pain. No: Diarrhea, Dysuria, Feeding tube problem, Flank pain, Sanders catheter problem, Groin pain, Hematuria , Testicular pain, Urinary retention, Vomiting, Other Timing/Duration: Gradual Quality of pain: Sharp, Stabbing. denies: No pain, Achy, Burning, Cramping, Dull, Fullness, Pressure, Throbbing, Other Severity at maximum: Severe Severity in ED: Severe Sexual history: denies: Active, Inactive, New partner, Multiple partners, Unprotected intercourse, Rectal penetration, STD exposure, Condoms Associated symptoms: denies: None, Blood in emesis, Blood in stool, Chest pain, Chills, Coffee ground emesis, Constipation, Diarrhea, Dizzy, Dysuria, Erection problem, Fever, Foreskin problem, Hard stool, Hematuria, Hematospermia, Hurts to breath, Inguinal mass, Lightheaded, Loss of appetite, Nausea, Painful intercourse, Penile discharge, Radiates to back, Radiates to chest, Radiates to testicles, Radiates to shoulder, Shortness of breath, Sweaty, Syncope, Urinary hesitancy, Urinary frequency, Urinary retention, Urinary urgency, Vomiting, Other Exacerbated by: denies: Denies, Supine, Sitting, Standing, Movement, Walking, Coughing, Deep breathing, Food, Other Relieved by: denies: Denies, Supine, Sitting, Standing, Remaining still, Antacids, Food, Other - Related Data Allergies/Adverse Reactions: metformin [Metformin] Allergy (Unknown, Verified 07/02/16 21:11) Penicillins Allergy (Verified 07/02/16 21:11) ziprasidone HCl [From Geodon] Allergy (Verified 07/02/16 21:11) oxycodone HCl [From Percocet] Adverse Reaction (Mild, Verified 07/02/16 21:11) sleepy Past Medical History - General Information source: Patient - Social History Smoking Status: Unknown if Ever Smoked Cigarette use (# per day): No Chew tobacco use (# tins/day): No Frequency of alcohol use: Rare Drug Abuse: None Family History: COPD, Hypertension Patient has suicidal ideation: No Patient has homicidal ideation: No - Past Medical History Cardiac Medical History: Reports: Hx Congestive Heart Failure, Hx Heart Attack, Hx Hypercholesterolemia, Hx Hypertension Pulmonary Medical History: Reports: Hx Bronchitis, Hx COPD, Hx Sleep Apnea Endocrine Medical History: Reports: Hx Diabetes Mellitus Type 2 Renal/ Medical History: Denies: Hx Peritoneal Dialysis GI Medical History: Reports: Hx Gastroesophageal Reflux Disease Psychiatric Medical History: Reports: Hx Dementia, Hx Depression, Hx Post Traumatic Stress Disorder, Hx Schizophrenia - schizoeffective d/o Past Surgical History: Reports: Hx Cardiac Surgery - stents, defibrillator, Hx Pacemaker - Immunizations Hx Diphtheria, Pertussis, Tetanus Vaccination: Yes Review of Systems - Review of Systems Constitutional: denies: No symptoms reported, See HPI, Chills, Diaphoresis, Fever, Malaise, Weakness, Other, Weight gain, Weight loss, Recent illness EENT: denies: No symptoms reported, See HPI, Eye pain, Eye discharge, Blurred vision, Tearing, Double vision, Ear pain, Ear discharge, Nose pain, Nose congestion, Nose discharge, Sinus pressure, Sinus discharge, Throat pain, Difficulty swallowing, Throat swelling, Mouth pain, Mouth swelling, Dental problem, Vertigo, Other Cardiovascular: See HPI Respiratory: See HPI Gastrointestinal: See HPI Physical Exam - Vital signs Vitals: Temp Resp Pulse Ox 98.7 F 20 97 09/17/17 11:20 09/17/17 11:20 09/17/17 11:20 - Notes Notes: PHYSICAL EXAMINATION: GENERAL: Appears in acute pain twisting and turning around pointing towards the right flank and right lower abdomen HEAD: Atraumatic, normocephalic. EYES: Pupils equal round and reactive to light, extraocular movements intact, sclera anicteric, conjunctiva are normal. ENT: Nares patent, oropharynx clear without exudates. Moist mucous membranes. NECK: Normal range of motion, supple without lymphadenopathy LUNGS: Breath sounds clear to auscultation bilaterally and equal. No wheezes rales or rhonchi. HEART: Regular rate and rhythm without murmurs ABDOMEN: Percussion tympanic all around except in the right lower quadrant which is done, sharp tenderness over the right lower quadrant and right lumbar region noted. Guarding no rebound tenderness. Positive bowel sounds Musculoskeletal: Could not perform due to his condition NEUROLOGICAL: Cranial nerves grossly intact. Normal speech, normal gait. Normal sensory, motor exams PSYCH: Normal mood, normal affect. SKIN: Warm, Dry, normal turgor, no rashes or lesions noted. Course - Re-evaluation Re-evalutation: 09/17/17 15:33 He was given total of 200 mg of fentanyl and 2 mg of Dilaudid. He still seems to be in pain and discomfort. His case was discussed with mailing machine assistant Dr. Garcia, as well as hospitalist service and currently being admitted - Vital Signs Vital signs: Temp Pulse Resp BP Pulse Ox 98.7 F 17 136/92 H 88 L 09/17/17 11:20 09/17/17 13:01 09/17/17 13:01 09/17/17 13:01 - Laboratory Result Diagrams: 09/17/17 11:27 09/17/17 11:27 Laboratory results interpreted by me: 09/17/17 09/17/17 09/17/17 11:17 11:27 11:27 WBC 10.7 H RDW 16.2 H Sodium 135.0 L BUN 23 H Glucose 232 H POC Glucose 200 H Total Bilirubin 1.9 H Direct Bilirubin 0.9 H Urine Protein Urine Glucose (UA) Urine Blood Urine Urobilinogen 09/17/17 14:33 WBC RDW Sodium BUN Glucose POC Glucose Total Bilirubin Direct Bilirubin Urine Protein >=500 H Urine Glucose (UA) 50 H Urine Blood SMALL H Urine Urobilinogen 4.0 H - EKG Interpretation by Me Rate: Tachycardia - Sinus tach at 131 bpm, normal axis, no acute ST elevation ST depression T-wave inversion noted. Discharge - Discharge Clinical Impression: Acute abdominal pain in right flank, Diverticulitis, Renal infarction, Chronic pain syndrome Condition: Stable Disposition: ADMITTED INPATIENT Admitting Provider: Hospitalist Unit Admitted: Telemetry
[2017-09-17] MEDS ORDERED: ENOXAPARIN SODIUM INJ 80 MG/0.8 ML DISP.SYRIN SUBCUT SCH (16:30)
[2017-09-17] MEDS ORDERED: NORMAL SALINE 1000 ML 1,000 ML IV PRN (16:33)
--- NOTE | 2017-09-17 16:48 | PDOC H&P ---
History of Present Illness Admission Date/PCP: 09/17/17 16:23 Patient complains of: Severe abdominal pain History of Present Illness: NAVARRO TEAGUE is a 56 year old male was brought to the ED with sudden onset severe right flank pain radiating to the right side of the abdomen since 3 AM today. The pain is intractable; patient has been extremely restless; patient's states that he has had hemoptysis for the past 2 days With some increase in his usual shortness of breath; patient has had no vomiting no diarrhea no fever no chills He has a known history of COPD O2 dependent 2 L/min; chronic smoking; chronic CHF; status post pacemaker. In the ED CT abdomen and pelvis was suggestive of an acute diverticulitis and possibly right renal infarct There was no evidence of dissection of the aorta Patient was treated with several doses of Dilaudid without much improvement in control and pain; Cipro and Flagyl were administered; Patient was subsequently admitted on the hospitalist service to [facility] for further evaluation and care. ER physician mentioned that the defibrillator went off patient was in SVT defibrillator will be interrogated in the ED On the monitor patient is sinus tachycardia at the rate of 120 when evaluated. Past Medical History Cardiac Medical History: Reports: Congestive Heart Failure, Myocardial Infarction, Hyperlipidema, Hypertension Pulmonary Medical History: Reports: Bronchitis, Chronic Obstructive Pulmonary Disease (COPD), Sleep Apnea Endocrine Medical History: Reports: Diabetes Mellitus Type 2 GI Medical History: Reports: Gastroesophageal Reflux Disease Psychiatric Medical History: Reports: Dementia, Depression, Post Traumatic Stress Disorder Past Surgical History Past Surgical History: Reports: Pacemaker Social History Smoking Status: Unknown if Ever Smoked Frequency of Alcohol Use: Occasional Hx Recreational Drug Use: No Drugs: None, Other - Opiate 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 - Advance Directive Resuscitation Status: Do Not Resuscitate Surrogate healthcare decision maker:: Gabbie Family History Family History: COPD, Hypertension Parental Family History Reviewed: Yes Children Family History Reviewed: Yes Sibling(s) Family History Reviewed.: Yes Medication/Allergy Home Medications: Aspirin [Aspirin 81 mg Chewable Tablet] 81 mg PO DAILY 09/17/17 Carvedilol [Coreg 25 mg Tablet] 25 mg PO Q12 09/17/17 Clopidogrel Bisulfate [Clopidogrel] 75 mg PO DAILY 09/17/17 Furosemide [Lasix 40 mg Tablet] 40 mg PO QAM 09/17/17 Losartan Potassium [Cozaar 25 mg Tablet] 25 mg PO DAILY 09/17/17 Omeprazole 20 mg PO DAILY 09/17/17 Pravastatin Sodium [Pravachol] 20 mg PO DAILY 09/17/17 Allergies/Adverse Reactions: metformin [Metformin] Allergy (Unknown, Verified 07/02/16 21:11) Penicillins Allergy (Verified 07/02/16 21:11) ziprasidone HCl [From Geodon] Allergy (Verified 07/02/16 21:11) oxycodone HCl [From Percocet] Adverse Reaction (Mild, Verified 07/02/16 21:11) sleepy Review of Systems ROS unobtainable: Other - Impossible to obtain Patient is moaning restless not answering questions appropriately Physical Exam Vital Signs: Temp Pulse Resp BP Pulse Ox 98.7 F 29 H 126/100 H 92 09/17/17 11:20 09/17/17 16:01 09/17/17 16:01 09/17/17 16:01 General appearance: PRESENT: severe distress, well-developed, well-nourished Head exam: PRESENT: atraumatic, normocephalic Eye exam: PRESENT: conjunctiva pink, EOMI, PERRLA. ABSENT: scleral icterus Ear exam: PRESENT: normal external ear exam Neck exam: ABSENT: carotid bruit, JVD, lymphadenopathy, thyromegaly Respiratory exam: PRESENT: decreased breath sounds. ABSENT: rales, rhonchi, wheezes Cardiovascular exam: PRESENT: tachycardia. ABSENT: gallop, rubs Pulses: PRESENT: normal dorsalis pedis pul GI/Abdominal exam: PRESENT: tenderness - Right flank and epigastric area ; the abdomen is distended ; no guarding or rebound Rectal exam: PRESENT: deferred Extremities exam: PRESENT: +1 edema Musculoskeletal exam: ABSENT: ambulatory, deformity, dislocation, full ROM, normal inspection, tenderness, other Neurological exam: PRESENT: altered Psychiatric exam: PRESENT: agitated, anxious Results Laboratory Results: 09/17/17 09/17/17 11:27 11:27 Hgb 16.3 Hct 49.2 Sodium 135.0 L Potassium 4.2 Chloride 101 Carbon Dioxide 22 Anion Gap 12 BUN 23 H Creatinine 1.05 Glucose 232 H Total Bilirubin 1.9 H Direct Bilirubin 0.9 H AST 22 ALT 36 Alkaline Phosphatase 94 Impressions: Abdomen/Pelvis CT 09/17/17 11:24 IMPRESSION: 1. Abnormal appearance of the right kidney, most consistent with infarction or pyelonephritis. Recommend correlation with urinalysis. 2. Sigmoid diverticulitis. Assessment & Plan - Diagnosis (1) DNR (do not resuscitate) Is this a current diagnosis for this admission?: Yes (2) Acute abdominal pain in right flank Is this a current diagnosis for this admission?: Yes Plan: CT abdomen and pelvis was not suggestive of renal colic Suggested possible right renal infarct and or pyelonephritis patient has a small blood in the in the urine; no leukocytosis patient's pain is extremely severe colicky in nature; he is extremely restless The pain is very suggestive of renal colic-like pain MRI cannot be performed as the patient has a defibrillator in place We will obtain ultrasound of the abdomen with Doppler study to rule out renal artery thrombosis and or portal vein thrombosis Noted that on CT abdomen and pelvis there is no evidence of aortic aneurysm with dissection; but severe atherosclerosis with calcification of the arteries was described We asked Dr. Pro general surgery to consult We did contemplate anticoagulation with Lovenox if suspicion for renal infarct is high enough and Dr. Pro feels strongly that patient is not an operative candidate (3) Diverticulitis Is this a current diagnosis for this admission?: Yes Plan: Initiated Cipro and Flagyl IV Patient is allergic to penicillin (4) Congestive heart failure Is this a current diagnosis for this admission?: Yes Plan: Appears stable at this time Obtain cardiac enzymes BNP Repeat EKG in a.m. (5) Encephalopathy acute Is this a current diagnosis for this admission?: Yes Plan: Associated with severe pain (7) Type I diabetes mellitus Qualifiers: Diabetes mellitus complication status: with unspecified complications Qualified Code(s): E10.8 - Type 1 diabetes mellitus with unspecified complications (8) Defibrillator discharge Is this a current diagnosis for this admission?: Yes - Time Time Spent with patient: Patient's condition is guarded at this time A urine toxicology will be sent; patient has had plenty opiates by the time it was done; In the meantime we will treat him with small doses of Ativan and Dilaudid Time Spent: Greater than 70 Minutes - Inpatient Certification Based on my medical assessment, after consideration of the patient's comorbidities, presenting symptoms, or acuity I expect that the services needed warrant INPATIENT care.: Yes I certify that my determination is in accordance with my understanding of Medicare's requirements for reasonable and necessary INPATIENT services [42 CFR 412.3e].: Yes Medical Necessity: Need For IV Fluids, Need For Continuous Telemetry Monitoring , Need for Pain Control, Need for IV Antibiotics, Need for Surgery - Surgical evaluation, Risk of Complication if Not Cared For in Hospital
[2017-09-17] MEDS: LORAZEPAM INJ 2 MG/1 ML VIAL IV PRN (16:50)
[2017-09-17] MEDS: METRONIDAZOLE 500 MG/NS RTU 100 ML IV SCH ×2 (17:24→23:21)
[2017-09-17] MEDS ORDERED: ENOXAPARIN SODIUM INJ 100 MG/1 ML DISP.SYRIN SUBCUT SCH ×2 (18:00→22:00)
[2017-09-17 18:04] LABS: URINE AMPHETAMINES SCREEN NEGATIVE; URINE BARBITURATES SCREEN NEGATIVE; URINE BENZODIAZEPINES SCREEN NEGATIVE; URINE COCAINE SCREEN NEGATIVE; URINE MARIJUANA (THC) SCREEN NEGATIVE; URINE METHADONE SCREEN NEGATIVE; URINE PHENCYCLIDINE SCREEN NEGATIVE
[2017-09-17 19:12] LABS: ARTERIAL BLOOD H2CO3 1.48 mmol/L (1.05-1.35); ARTERIAL BLOOD HCO3 23.9 mmol/L (20-26); ARTERIAL BLOOD O2 SATURATION 88.1 % (94-98); ARTERIAL BLOOD PCO2 49.1 mmHg (35-45); ARTERIAL BLOOD PH 7.31 (7.35-7.45); ARTERIAL BLOOD PO2 59.5 mmHg (80-100); ARTERIAL BLOOD TOTAL CO2 25.4 mmol/L (23-27)
[2017-09-17 19:14] LABS: ARTERIAL BLOOD FIO2 100%
[2017-09-17] MEDS: PANTOPRAZOLE SODIUM 40 MG VIAL IV SCH (21:01)
[2017-09-17] MEDS: CIPROFLOXACIN 400 MG/D5W RTU 400 MG/200 ML RTUPB IV SCH (21:01)
[2017-09-17] MEDS ORDERED: ENOXAPARIN SODIUM INJ 100 MG/1 ML DISP.SYRIN SUBCUT ONE (21:30)
--- NOTE | 2017-09-17 21:53 | PDOC CONSULTATION ---
History of Present Illness Admission Date/PCP: 09/17/17 16:33 Patient complains of: abdominal pains History of Present Illness: 56 yo male came to ED because of severe abdominal pains. CT scan of abd/pelvis showed right renal infarct/pyelonephritis. His urine has some blood. Past Medical History Cardiac Medical History: Reports: Congestive Heart Failure, Myocardial Infarction, Hyperlipidema, Hypertension Pulmonary Medical History: Reports: Bronchitis, Chronic Obstructive Pulmonary Disease (COPD), Sleep Apnea Endocrine Medical History: Reports: Diabetes Mellitus Type 2 GI Medical History: Reports: Gastroesophageal Reflux Disease Psychiatric Medical History: Reports: Dementia, Depression, Post Traumatic Stress Disorder Past Surgical History Past Surgical History: Reports: Pacemaker Social History Smoking Status: Current Every Day Smoker Frequency of Alcohol Use: Occasional Hx Recreational Drug Use: No Drugs: None, Other 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 - Advance Directive Resuscitation Status: Do Not Resuscitate Family History Family History: COPD, Hypertension Parental Family History Reviewed: No Children Family History Reviewed: No Sibling(s) Family History Reviewed.: No Medication/Allergy Home Medications: Aspirin [Aspirin 81 mg Chewable Tablet] 81 mg PO DAILY 09/17/17 Carvedilol [Coreg 25 mg Tablet] 25 mg PO Q12 09/17/17 Clopidogrel Bisulfate [Clopidogrel] 75 mg PO DAILY 09/17/17 Furosemide [Lasix 40 mg Tablet] 40 mg PO QAM 09/17/17 Losartan Potassium [Cozaar 25 mg Tablet] 25 mg PO DAILY 09/17/17 Omeprazole 20 mg PO DAILY 09/17/17 Pravastatin Sodium [Pravachol] 20 mg PO DAILY 09/17/17 Allergies/Adverse Reactions: metformin [Metformin] Allergy (Unknown, Verified 07/02/16 21:11) Penicillins Allergy (Verified 07/02/16 21:11) ziprasidone HCl [From Geodon] Allergy (Verified 07/02/16 21:11) oxycodone HCl [From Percocet] Adverse Reaction (Mild, Verified 07/02/16 21:11) sleepy Review of Systems ROS unobtainable: Due to mental status - Patient asleep when seen in ED Gastrointestinal: PRESENT: other - abd is soft and appears nontender Physical Exam Vital Signs: Temp Pulse Resp BP Pulse Ox 97.7 F 116 H 11 L 131/92 H 96 09/17/17 19:49 09/17/17 19:49 09/17/17 19:58 09/17/17 19:49 09/17/17 19:58 Intake & Output 09/16/17 09/17/17 09/18/17 06:59 06:59 06:59 Intake Total 0 Balance 0 Exam: Pt asleep in the ED likely also from pain meds Abd is soft and appears nontender Results Laboratory Results: 09/17/17 19:05 Carbonic Acid 1.48 H HCO3/H2CO3 Ratio 16:1 ABG pH 7.31 L ABG pCO2 49.1 H ABG pO2 59.5 L ABG HCO3 23.9 ABG O2 Saturation 88.1 L ABG Base Excess -3.0 FiO2 100% Impressions: Abdomen/Pelvis CT 09/17/17 11:24 IMPRESSION: 1. Abnormal appearance of the right kidney, most consistent with infarction or pyelonephritis. Recommend correlation with urinalysis. 2. Sigmoid diverticulitis. Assessment & Plan - Diagnosis (1) Pyelonephritis Is this a current diagnosis for this admission?: Yes - Time Time Spent: 30 to 50 Minutes - Inpatient Certification Medical Necessity: Need For IV Fluids, Need for Pain Control, Need for IV Antibiotics - Plan Summary Plan Summary: Doudt patient has an itra-abdominal lesion. Symptoms likely due to Right Pyelonephritis/infarct
--- NOTE | 2017-09-17 22:14 | RADIOLOGY REPORT (SQ) ---
EXAM DESCRIPTION: U/S ABDOMEN COMPLETE W/DOPPLER COMPLETED DATE/TIME: 09/17/2017 9:49 pm REASON FOR STUDY: pain ? renal infarct ? portal vein thrombosis COMPARISON: CT same date TECHNIQUE: Dynamic and static grayscale images acquired of the abdomen and recorded on PACS. Additio nal selected color Doppler and spectral images recorded. LIMITATIONS: Poor sonic specimen FINDINGS: PANCREAS: Poorly visual LIVER: 16 cm LIVER VASCULATURE: Normal directional flow of the main portal vein and hepatic veins. GALLBLADDER: Poorly seen ULTRASOUND-DETECTED TIPTON'S SIGN: Not documented. INTRAHEPATIC DUCTS AND COMMON DUCT: Poorly seen INFERIOR VENA CAVA: Normal flow. AORTA: No aneurysm. RIGHT KIDNEY: Limited visualization Normal size. Normal echogenicity. No solid or suspicious mas ses. No hydronephrosis. No calcifications. LEFT KIDNEY: Limited visualization Normal size. Normal echogenicity. No solid or suspicious mass es. No hydronephrosis. No calcifications. SPLEEN: Not visualized PERITONEAL AND PLEURAL SPACES: No ascites or effusions. OTHER: No other significant finding. IMPRESSION: Portal vein is patent. Very limited study. Limited visualization of kidneys. TECHNICAL DOCUMENTATION: JOB ID: [id number] [employer]- All Rights Reserved Reading location - IP/workstation name: [email or web address]
[2017-09-18 04:50] LABS: HEMATOCRIT 48.1 % (37.9-51.0); HEMOGLOBIN 15.8 g/dL (13.5-17.0); MEAN CORPUSCULAR HEMOGLOBIN 30.1 pg (27.0-33.4); MEAN CORPUSCULAR HGB CONC 32.8 g/dL (32.0-36.0); MEAN CORPUSCULAR VOLUME 92 fl (80-97); PLATELET COUNT 202 10^3/uL (150-450); RED BLOOD COUNT 5.24 10^6/uL (4.35-5.55); RED CELL DISTRIBUTION WIDTH 16.9 % (11.5-14.0); WHITE BLOOD COUNT 9.2 10^3/uL (4.0-10.5)
[2017-09-18 05:05] LABS: ALANINE AMINOTRANSFERASE 36 U/L (21-72); ALBUMIN 3.4 g/dL (3.5-5.0); ALKALINE PHOSPHATASE 86 U/L (38-126); ANION GAP 14 (5-19); ASPARTATE AMINO TRANSFERASE 31 U/L (17-59); BILIRUBIN,DIRECT 0.6 mg/dL (0.0-0.4); BILIRUBIN,TOTAL 1.3 mg/dL (0.2-1.3); BLOOD UREA NITROGEN 27 mg/dL (7-20); CALCIUM 8.8 mg/dL (8.4-10.2); CARBON DIOXIDE 26 mmol/L (22-30); CHLORIDE 100 mmol/L (98-107); CHOLESTEROL 135.83 mg/dL (0-200); GLUCOSE 179 mg/dL (75-110); POTASSIUM 4.7 mmol/L (3.6-5.0); SODIUM 139.5 mmol/L (137-145); TOTAL PROTEIN 6.3 g/dL (6.3-8.2); TRIGLYCERIDES 83 mg/dL (<150)
[2017-09-18] MEDS: METRONIDAZOLE 500 MG/NS RTU 100 ML IV SCH ×3 (05:16→18:36)
[2017-09-18 05:18] LABS: DIRECT LDL 102 mg/dL (<100)
[2017-09-18 05:21] LABS: FREE T4 (FREE THYROXINE) 1.92 ng/dL (0.78-2.19)
[2017-09-18 05:35] LABS: THYROID STIMULATING HORMONE 1.34 uIU/mL (0.47-4.68)
--- NOTE | 2017-09-18 06:36 | PDOC PROGRESS REPORT ---
Subjective Progress Note for:: 09/18/17 Subjective:: This morning patient looks a lot more comfortable Still complaining of right flank pain but more tolerable Is on BiPAP support ; he is alert and awake On the monitor is in a sinus tachycardia Review of monitor strips from last night shows a patient at times has SVT, other times sinus tachycardia At other times the rhythm is consistent with MAT Ultrasound of the abdomen was unremarkable Reason For Visit: INTRACTABLE ABDOMINAL PAIN,DIVERTICULITIS Physical Exam Vital Signs: Temp Pulse Resp BP Pulse Ox 97.5 F 114 H 18 126/97 H 96 09/18/17 04:03 09/18/17 04:03 09/18/17 05:03 09/18/17 04:03 09/18/17 05:03 Intake & Output 09/17/17 09/18/17 09/19/17 00:59 00:59 00:59 Intake Total 0 928 Balance 0 928 General appearance: PRESENT: No comfortable in no acute distress this morning, well-developed, well-nourished Head exam: PRESENT: atraumatic, normocephalic Eye exam: PRESENT: conjunctiva pink, EOMI, PERRLA. ABSENT: scleral icterus Ear exam: PRESENT: normal external ear exam Neck exam: ABSENT: carotid bruit, JVD, lymphadenopathy, thyromegaly Respiratory exam: PRESENT: decreased breath sounds. ABSENT: rales, rhonchi, wheezes Cardiovascular exam: PRESENT: tachycardia. ABSENT: gallop, rubs Pulses: PRESENT: normal dorsalis pedis pul GI/Abdominal exam: PRESENT: tenderness - Right flank and epigastric area ; the abdomen is distended ; no guarding or rebound Rectal exam: PRESENT: deferred Extremities exam: PRESENT: +1 edema Musculoskeletal exam: ABSENT: ambulatory, deformity, dislocation, full ROM, normal inspection, tenderness, other Neurological exam: PRESENT: altered Psychiatric exam: PRESENT: agitated, anxious Results Laboratory Results: 09/18/17 04:35 09/18/17 04:35 09/17/17 09/18/17 09/18/17 19:05 04:35 04:35 WBC 9.2 RBC 5.24 Hgb 15.8 Hct 48.1 MCV 92 MCH 30.1 MCHC 32.8 RDW 16.9 H Plt Count 202 Carbonic Acid 1.48 H HCO3/H2CO3 Ratio 16:1 ABG pH 7.31 L ABG pCO2 49.1 H ABG pO2 59.5 L ABG HCO3 23.9 ABG O2 Saturation 88.1 L ABG Base Excess -3.0 FiO2 100% Sodium 139.5 Potassium 4.7 Chloride 100 Carbon Dioxide 26 Anion Gap 14 BUN 27 H Creatinine 1.19 Est GFR ( Amer) > 60 Est GFR (Non-Af Amer) > 60 Glucose 179 H Calcium 8.8 Total Bilirubin 1.3 AST 31 ALT 36 Alkaline Phosphatase 86 Total Protein 6.3 Albumin 3.4 L Triglycerides 83 Cholesterol 135.83 LDL Cholesterol Direct 102 H VLDL Cholesterol 17.0 HDL Cholesterol 30 L TSH Free T4 09/18/17 04:35 WBC RBC Hgb Hct MCV MCH MCHC RDW Plt Count Carbonic Acid HCO3/H2CO3 Ratio ABG pH ABG pCO2 ABG pO2 ABG HCO3 ABG O2 Saturation ABG Base Excess FiO2 Sodium Potassium Chloride Carbon Dioxide Anion Gap BUN Creatinine Est GFR ( Amer) Est GFR (Non-Af Amer) Glucose Calcium Total Bilirubin AST ALT Alkaline Phosphatase Total Protein Albumin Triglycerides Cholesterol LDL Cholesterol Direct VLDL Cholesterol HDL Cholesterol TSH 1.34 Free T4 1.92 09/17/17 09/18/17 22:23 04:35 Troponin I 0.059 0.068 Impressions: Abdomen/Pelvis CT 09/17/17 11:24 IMPRESSION: 1. Abnormal appearance of the right kidney, most consistent with infarction or pyelonephritis. Recommend correlation with urinalysis. 2. Sigmoid diverticulitis. Abdomen Ultrasound 09/17/17 16:31 IMPRESSION: Portal vein is patent. Very limited study. Limited visualization of kidneys. Assessment & Plan - Diagnosis (1) DNR (do not resuscitate) Is this a current diagnosis for this admission?: Yes (2) Acute abdominal pain in right flank Is this a current diagnosis for this admission?: Yes Plan: The etiology at this time is unclear Patient may have had renal colic and passed a small stone He did have microscopic hematuria He is currently treated as an acute pyelonephritis We will discuss case with radiologist ? Any more investigation regarding possibility of renal infarct ? Perform a CTA of the kidneys (3) Diverticulitis Is this a current diagnosis for this admission?: Yes Plan: Initiated Cipro and Flagyl IV Patient is allergic to penicillin continue Cipro and Flagyl (4) Encephalopathy acute Is this a current diagnosis for this admission?: Yes (6) Type I diabetes mellitus Qualifiers: Diabetes mellitus complication status: with unspecified complications Qualified Code(s): E10.8 - Type 1 diabetes mellitus with unspecified complications Is this a current diagnosis for this admission?: Yes Plan: Glucose is 179 this morning We will initiate Accu-Chek before meals at bedtime and lispro coverage ; ADA diet (7) Defibrillator discharge Is this a current diagnosis for this admission?: Yes Plan: We will review interrogation of defibrillator Patient was in SVT (8) Acute on chronic systolic CHF (congestive heart failure) Is this a current diagnosis for this admission?: Yes Plan: EF is 25% echocardiogram performed on echocardiogram performed on 02/23/2015 Chest x-ray suggestive of CHF Patient did have hypoxemia on ABGs performed last night We will diurese the patient with Lasix Resume losartan resume Coreg Reevaluate pulmonary status later Continue BiPAP as needed Noted that the BNP was 16,000 Troponins are in intermediate range There is no evidence of an acute coronary syndrome - Time Time Spent with patient: We will resume a diet this morning Continue BiPAP as needed Time Spent with patient: 25-34 minutes
[2017-09-18] MEDS ORDERED: LANSOPRAZOLE 15 MG TAB.RAP.DR PO ONE (06:45)
[2017-09-18] MEDS ORDERED: DEXTROSE 40% GEL 15 GM TUBE PO PRN ×2 (06:52)
[2017-09-18] MEDS ORDERED: DEXTROSE 50%-WATER 25 GM/50 ML DISP.SYRIN IV PRN ×2 (06:52)
[2017-09-18] MEDS ORDERED: GLUCAGON,HUMAN RECOMB 1 MG INJ IM PRN (06:52)
[2017-09-18] MEDS ORDERED: INSULIN REG, HUMAN 100 UNIT/ML 3 ML VIAL (PYX) SUBCUT PRN (06:52)
--- NOTE | 2017-09-18 07:55 | EKG REPORT ---
SEVERITY:- ABNORMAL ECG - SINUS TACHYCARDIA CONSIDER ANTERIOR INFARCT NONSPECIFIC T ABNORMALITIES, LATERAL LEADS BORDERLINE PROLONGED QT INTERVAL : Confirmed by: Lane Leon MD 18-Sep-2017 07:55:28
[2017-09-18] MEDS ORDERED: CARVEDILOL 12.5 MG TABLET PO SCH (10:00)
[2017-09-18] MEDS ORDERED: FUROSEMIDE INJ/PF 20 MG/2 ML SDV IV SCH ×2 (10:00)
[2017-09-18] MEDS ORDERED: MAGNESIUM SULFATE/D5W 1 GM/100 ML RTUPB IV ONE (10:10)
[2017-09-18] MEDS: HYDROMORPHONE HCL INJ/PF 2 MG/ML AMPULE IV PRN (10:16)
[2017-09-18] MEDS: LOSARTAN POTASSIUM 25 MG TABLET PO SCH (10:17)
[2017-09-18] MEDS: CLOPIDOGREL BISULFATE 75 MG TABLET PO SCH (10:18)
[2017-09-18] MEDS: PANTOPRAZOLE SODIUM 40 MG VIAL IV SCH ×2 (10:19→23:06)
[2017-09-18] MEDS: ASPIRIN 81 MG TABLET, CHEWABLE PO SCH (10:19)
[2017-09-18] MEDS ORDERED: DEXTROSE 5%-WATER 500 ML with AMIODARONE HCL 900 MG IV PRN ×2 (10:45)
[2017-09-18] MEDS ORDERED: AMIODARONE HCL 150 MG in DEXTROSE 5%-WATER 100 ML IV ONE (10:45)
[2017-09-18] MEDS: ONDANSETRON HCL INJ/PF 4 MG/2 ML SDV IV PRN ×2 (11:51→18:31)
[2017-09-18] MEDS: CIPROFLOXACIN 400 MG/D5W RTU 400 MG/200 ML RTUPB IV SCH ×2 (14:22→23:04)
--- NOTE | 2017-09-18 14:32 | RADIOLOGY REPORT (SQ) ---
EXAM DESCRIPTION: CTA ABDOMEN/PELVIS W WO COMPLETED DATE/TIME: 09/18/2017 1:43 pm REASON FOR STUDY: rt flank pain R/O renal infarct COMPARISON: CT of the abdomen and pelvis dated 09/17/2014 TECHNIQUE: CT scan of the abdominal aorta extending to the iliac bifurcation performed with and with out intravenous contrast using helical scanning technique with dynamic intravenous contrast injection . Images reviewed with lung, soft tissue, and bone windows. Reconstructed coronal and sagittal MPR im ages reviewed. All images stored on PACS. Advanced 3D imaging as volume rendering, MIPS, SSD performed? yes All CT scanners at this facility use dose modulation, iterative reconstruction, and/or weight based d osing when appropriate to reduce radiation dose to as low as reasonably achievable (ALARA). [facility]: Dose Right [facility]: CareDose [facility]: Dose Right [facility]: Teradose 4D [facility]: [employer] CONTRAST TYPE AND DOSE: contrast/concentration: Isovue 370.00 mg/ml; Total Contrast Delivered: 106.0 ml; Total Saline Delivered: 160.0 ml RENAL FUNCTION: Creatinine 1.19 LIMITATIONS: There is residual IV contrast in the bladder and kidneys related to the previous abdomi nal and pelvic CT scan with IV contrast FINDINGS: NON-CONTRASTED IMAGING: No renal or ureteric calculi are identified. Scattered splenic ca lcifications are identified. There is ectasia of the abdominal aorta and iliac vessels with vascular calcifications. POST-CONTRAST IMAGING: AORTA AND VESSELS: There is ectasia of the abdominal aorta and iliac vessels with vascular calcificat ions. Maximum diameter of the abdominal aorta is 2.5 cm. Intraluminal thrombus is identified within the abdominal aorta extending inferiorly from the level of the renal arteries. In the upper abdomin al aorta the configuration of intraluminal thrombus could be related to a chronic aortic dissection w ith occlusion of the false lumen. In the lower abdominal aorta the intraluminal thrombus has a more circumferential distribution. There are focal stenoses of the common iliac arteries bilaterally whic h appears more extensive on the right and extends into the right external iliac artery. LUNG BASES: Tiny bilateral pleural effusions are again identified with some minimal associated airspa ce consolidation most consistent with atelectatic changes. There is some thickening of the pericardi um consistent with a small pericardial effusion. LIVER: Normal size. No masses or dilated ducts. SPLEEN: Normal size. No masses. Splenic calcifications are again identified. PANCREAS: No masses. No significant calcifications. No adjacent inflammation or peripancreatic fluid collections. Pancreatic duct not dilated. GALLBLADDER: No identified stones by CT criteria. No inflammatory changes to suggest cholecystitis. ADRENAL GLANDS: No significant masses or asymmetry. RIGHT KIDNEY AND URETER: The previously described geographic low attenuation in the right renal marci x is again identified and appears essentially unchanged. Again the differential possibilities would include infarction or pyelonephritis. Again recommend correlation with urinalysis. No renal calculi are identified. No hydronephrosis is seen. There is more extensive perinephric soft tissue strandi ng compared to the previous study. LEFT KIDNEY AND URETER: No mass, calculi or urinary tract obstruction. RETROPERITONEUM: No retroperitoneal adenopathy, hemorrhage or masses. BOWEL AND PERITONEAL CAVITY: No masses or inflammatory changes. No free fluid or peritoneal masses. The previously described mesenteric inflammation in the pelvis adjacent to the anastomosis at the lev el of the sigmoid colon appears less pronounced. No discrete abscess collection is identified. Ther e is gaseous distention of multiple bowel loops most consistent with an ileus pattern. APPENDIX: Normal. ABDOMINAL WALL: No masses. No hernias. BONY STRUCTURES: No significant or acute findings. 3-D IMAGING: Confirms the above findings. OTHER: No other significant finding. IMPRESSION: There is ectasia of the abdominal aorta and iliac vessels with vascular calcifications. Intraluminal thrombus is identified within the abdominal aorta as noted above with the configuration in the upper abdominal aorta could be related to a chronic aortic dissection with occlusion of the f alse lumen. In the lower abdominal aorta the intraluminal thrombus has a more circumferential distri bution. Focal stenosis of the common iliac arteries right greater than left as noted above. The pre viously described geographic low attenuation in the right renal cortex is again identified and appear s essentially unchanged. Again the differential possibilities would include infarction or pyelonephr itis. Again recommend correlation with urinalysis. There is more extensive periaortic soft tissue s tranding on the right as compared to the previous study. There is gaseous distention of multiple bow el loops most consistent with an ileus pattern. Other findings as noted above TECHNICAL DOCUMENTATION: JOB ID: [id number] Quality ID # [id number]: Final reports with documentation of one or more dose reduction techniques (e.g., Au tomated exposure control, adjustment of the mA and/or kV according to patient size, use of iterative reconstruction technique) 2010 [employer]- All Rights Reserved Reading location - IP/workstation name: [email or web address]
--- NOTE | 2017-09-18 16:54 | PDOC TRANSFER SUMMARY ---
General Admission Date/PCP: 09/17/17 16:33 Admission Date: 09/17/27 Transfer Date: 09/18/17 Accepting Facility: [facility] Resuscitation Status: Do Not Resuscitate - Transfer Diagnosis (1) DNR (do not resuscitate) Is this a current diagnosis for this admission?: Yes (2) Acute abdominal pain in right flank Is this a current diagnosis for this admission?: Yes (3) Diverticulitis Is this a current diagnosis for this admission?: Yes (4) Encephalopathy acute Is this a current diagnosis for this admission?: Yes (6) Type I diabetes mellitus Is this a current diagnosis for this admission?: Yes (7) Defibrillator discharge Is this a current diagnosis for this admission?: Yes (8) Acute on chronic systolic CHF (congestive heart failure) Is this a current diagnosis for this admission?: Yes (9) Thrombus of aorta Is this a current diagnosis for this admission?: Yes (10) Aortic dissection Is this a current diagnosis for this admission?: Yes - Transfer Medications Home Medications: Aspirin [Aspirin 81 mg Chewable Tablet] 81 mg PO DAILY 09/17/17 Carvedilol [Coreg 25 mg Tablet] 25 mg PO Q12 09/17/17 Clopidogrel Bisulfate [Clopidogrel] 75 mg PO DAILY 09/17/17 Furosemide [Lasix 40 mg Tablet] 40 mg PO QAM 09/17/17 Losartan Potassium [Cozaar 25 mg Tablet] 25 mg PO DAILY 09/17/17 Omeprazole 20 mg PO DAILY 09/17/17 Pravastatin Sodium [Pravachol] 20 mg PO DAILY 09/17/17 Transfer Medications: Current Medications Aspirin (Aspirin 81 Mg Chewable Tablet) 81 mg PO DAILY ANCA Stop: 10/18/17 09:59 Last Admin: 09/18/17 10:19 Dose: 81 mg Atorvastatin Calcium (Lipitor 10 Mg Tablet) 5 mg PO QHS ANCA Stop: 10/18/17 21:59 Carvedilol (Coreg 12.5 Mg Tablet) 25 mg PO Q12 ANCA Stop: 10/18/17 09:59 Last Admin: 09/18/17 10:19 Dose: 25 mg Clopidogrel Bisulfate (Plavix 75 Mg Tablet) 75 mg PO DAILY ANCA Stop: 10/18/17 09:59 Last Admin: 09/18/17 10:18 Dose: 75 mg Dextrose (Dextrose Inj 50% Syringe (25 Gm/50 Ml)) 12.5 gm IV PRN PRN; Protocol PRN Reason: FOR BG 50-69 IN ALERT PATIENT Stop: 10/18/17 06:51 Dextrose (Dextrose Inj 50% Syringe (25 Gm/50 Ml)) 25 gm IV PRN PRN; Protocol PRN Reason: PER PROTOCOL Stop: 10/18/17 06:51 Furosemide (Lasix Inj/Pf 20 Mg/2 Ml Sdv) 20 mg IV Q12 ANCA Stop: 10/18/17 09:59 Last Admin: 09/18/17 10:19 Dose: 20 mg Glucagon (Glucagen Inj 1 Mg Vial) 1 mg IM PRN PRN; Protocol PRN Reason: Evaluate for BG < 70 Stop: 10/18/17 06:51 Glucose (Glutose 40% Gel 15 Gm Tube) 15 gm PO PRN PRN; Protocol PRN Reason: FOR BG 50-69 IN ALERT PATIENT Stop: 10/18/17 06:51 Glucose (Glutose 40% Gel 15 Gm Tube) 30 gm PO PRN PRN; Protocol PRN Reason: FOR BG < 50 IN ALERT PATIENT Stop: 10/18/17 06:51 Hydromorphone HCl (Dilaudid Inj/Pf 2 Mg/Ml Ampule) 2 mg IV Q2HP PRN PRN Reason: PAIN Stop: 09/24/17 16:27 Last Admin: 09/18/17 10:16 Dose: 2 mg Ciprofloxacin/Dextrose (Cipro Rtu 400 Mg/D5w 200 Ml Premix Bag) 400 mg in 200 mls @ 200 mls/hr IV Q12 ANCA Stop: 09/24/17 21:59 Last Admin: 09/18/17 14:22 Dose: 200 ml Metronidazole (Flagyl Rtu 500 Mg/Ns 100ml Premix) 100 mls @ 100 mls/hr IV Q6 ANCA Stop: 09/24/17 17:59 Last Admin: 09/18/17 05:16 Dose: 100 ml Amiodarone HCl 900 mg/ (Dextrose) 500 mls @ 0 mls/hr IV CONTINUOUS PRN; Protocol; Per Protocol PRN Reason: THIS MED IS NOT "PRN" Stop: 09/21/17 10:44 Last Admin: 09/18/17 12:27 Dose: 900 mg Insulin Human Regular (Humulin R (Pyxis) Insulin 100 Unit/Ml 3ml) 0 - 12 unit SUBCUT Q6HP PRN; Protocol PRN Reason: PER PROTOCOL Stop: 10/18/17 06:51 Lansoprazole (Prevacid 15 Mg Odt Tablet) 15 mg PO Q6AM ANCA Stop: 10/19/17 05:59 Lorazepam (Ativan Inj 2 Mg/1 Ml Vial) 2 mg IV Q4HP PRN Stop: 09/24/17 16:21 Last Admin: 09/17/17 16:50 Dose: 2 mg Losartan Potassium (Cozaar 25 Mg Tablet) 25 mg PO DAILY ANCA Stop: 10/18/17 09:59 Last Admin: 09/18/17 10:17 Dose: 25 mg Ondansetron HCl (Zofran Inj/Pf 4 Mg/2 Ml Sdv) 4 mg IV Q4HP PRN PRN Reason: FOR NAUSEA/VOMITING Stop: 10/17/17 16:32 Last Admin: 09/18/17 11:51 Dose: 4 mg Pantoprazole Sodium (Protonix Iv Inj 40 Mg Vial) 40 mg IV Q12 ANCA Stop: 09/20/17 21:59 Last Admin: 09/18/17 10:19 Dose: 40 mg - Allergies Allergies/Adverse Reactions: metformin [Metformin] Allergy (Unknown, Verified 07/02/16 21:11) Penicillins Allergy (Verified 07/02/16 21:11) ziprasidone HCl [From Geodon] Allergy (Verified 07/02/16 21:11) oxycodone HCl [From Percocet] Adverse Reaction (Mild, Verified 07/02/16 21:11) sleepy Physical Exam Vital Signs: Temp Pulse Resp BP Pulse Ox 98.2 F 78 20 119/71 98 09/18/17 12:00 09/18/17 12:00 09/18/17 12:00 09/18/17 11:16 09/18/17 12:00 Intake & Output 09/17/17 09/18/17 09/19/17 00:59 00:59 00:59 Intake Total 0 978 Balance 0 978 Results Laboratory Results: 09/18/17 04:35 09/18/17 04:35 09/17/17 09/18/17 09/18/17 19:05 04:35 04:35 WBC 9.2 RBC 5.24 Hgb 15.8 Hct 48.1 MCV 92 MCH 30.1 MCHC 32.8 RDW 16.9 H Plt Count 202 Carbonic Acid 1.48 H HCO3/H2CO3 Ratio 16:1 ABG pH 7.31 L ABG pCO2 49.1 H ABG pO2 59.5 L ABG HCO3 23.9 ABG O2 Saturation 88.1 L ABG Base Excess -3.0 FiO2 100% Sodium 139.5 Potassium 4.7 Chloride 100 Carbon Dioxide 26 Anion Gap 14 BUN 27 H Creatinine 1.19 Est GFR ( Amer) > 60 Est GFR (Non-Af Amer) > 60 Glucose 179 H Calcium 8.8 Magnesium Total Bilirubin 1.3 AST 31 ALT 36 Alkaline Phosphatase 86 Total Protein 6.3 Albumin 3.4 L Triglycerides 83 Cholesterol 135.83 LDL Cholesterol Direct 102 H VLDL Cholesterol 17.0 HDL Cholesterol 30 L TSH Free T4 09/18/17 09/18/17 04:35 04:35 WBC RBC Hgb Hct MCV MCH MCHC RDW Plt Count Carbonic Acid HCO3/H2CO3 Ratio ABG pH ABG pCO2 ABG pO2 ABG HCO3 ABG O2 Saturation ABG Base Excess FiO2 Sodium Potassium Chloride Carbon Dioxide Anion Gap BUN Creatinine Est GFR ( Amer) Est GFR (Non-Af Amer) Glucose Calcium Magnesium 2.1 Total Bilirubin AST ALT Alkaline Phosphatase Total Protein Albumin Triglycerides Cholesterol LDL Cholesterol Direct VLDL Cholesterol HDL Cholesterol TSH 1.34 Free T4 1.92 09/17/17 09/18/17 22:23 04:35 Troponin I 0.059 0.068 Impressions: Abdomen/Pelvis CT 09/17/17 11:24 IMPRESSION: 1. Abnormal appearance of the right kidney, most consistent with infarction or pyelonephritis. Recommend correlation with urinalysis. 2. Sigmoid diverticulitis. Abdomen Ultrasound 09/17/17 16:31 IMPRESSION: Portal vein is patent. Very limited study. Limited visualization of kidneys. Abdomen/Pelvis CTA 09/18/17 06:49 IMPRESSION: There is ectasia of the abdominal aorta and iliac vessels with vascular calcifications. Intraluminal thrombus is identified within the abdominal aorta as noted above with the configuration in the upper abdominal aorta could be related to a chronic aortic dissection with occlusion of the false lumen. In the lower abdominal aorta the intraluminal thrombus has a more circumferential distribution. Focal stenosis of the common iliac arteries right greater than left as noted above. The previously described geographic low attenuation in the right renal cortex is again identified and appears essentially unchanged. Again the differential possibilities would include infarction or pyelonephritis. Again recommend correlation with urinalysis. There is more extensive periaortic soft tissue stranding on the right as compared to the previous study. There is gaseous distention of multiple bowel loops most consistent with an ileus pattern. Other findings as noted above
[2017-09-18] MEDS ORDERED: HEPARIN SOD (PORCINE) 1,000 UNIT/ML 10 ML VIAL IV ONE (17:02)
[2017-09-18] MEDS ORDERED: HEPARIN SODIUM,PORCINE/D5W 25,000 UNIT/250 ML RTUINJ IV PRN (17:02)
[2017-09-18] MEDS ORDERED: HEPARIN SOD (PORCINE) 1,000 UNIT/ML 10 ML VIAL IV PRN (17:06)
[2017-09-18 17:07] LABS: ABSOLUTE LYMPHOCYTES (AUTO) 0.9 10^3/uL (0.5-4.7); ABSOLUTE MONOCYTES (AUTO) 1.1 10^3/uL (0.1-1.4); ABSOLUTE NEUT (AUTO) 9.4 10^3/uL (1.7-8.2); BASOPHILS % (AUTO) 0.4 % (0-2); HEMATOCRIT 46.3 % (37.9-51.0); HEMOGLOBIN 14.9 g/dL (13.5-17.0); LYMPHOCYTES % (AUTO) 7.6 % (13-45); MEAN CORPUSCULAR HEMOGLOBIN 29.7 pg (27.0-33.4); MEAN CORPUSCULAR HGB CONC 32.1 g/dL (32.0-36.0); MEAN CORPUSCULAR VOLUME 92 fl (80-97); MONOCYTES % (AUTO) 9.6 % (3-13); PLATELET COUNT 198 10^3/uL (150-450); RED BLOOD COUNT 5.01 10^6/uL (4.35-5.55); RED CELL DISTRIBUTION WIDTH 16.7 % (11.5-14.0); SEGMENTED NEUTROPHILS % (AUTO) 82.4 % (42-78); TOTAL CELLS COUNTED % (AUTO) 100 %; WHITE BLOOD COUNT 11.4 10^3/uL (4.0-10.5)
--- NOTE | 2017-09-18 17:12 | Progress Note ---
Provider Note Provider Note: CTA abdomen and pelvis shows ectasia of the abdominal aorta intraluminal thrombus, that extends inferiorly from the renal arteries upper aorta shows an intraluminal thrombus that could be related to dissection and occlusion of the false lumen Discussed case with vascular surgery Dr. Jimenez Patient is not a candidate for intervention Just advised heparin IV ; we will transfer the patient to the intensive care unit Patient became hypotensive with blood pressure 80/50 Patient has no pain in the respiratory distress We will get a will give her fluid bolus and reevaluate
[2017-09-18 17:32] LABS: INTERNATIONAL RATION (INR) 1.45; PROTHROMBIN TIME 18.5 SEC (11.4-15.4)
[2017-09-18 17:33] LABS: PARTIAL THROMBOPLASTIN TIME 35.2 SEC (23.5-35.8)
[2017-09-18] MEDS ORDERED: NOREPINEPHRINE BITARTRATE INJ/PF 4 MG/4 ML SDV IV ONE (17:58)
[2017-09-18] MEDS: DEXTROSE 5%-WATER 250 ML with NOREPINEPHRINE BITARTRATE 4 MG IV PRN ×2 (18:33)
[2017-09-18] MEDS ORDERED: ATORVASTATIN CALCIUM 10 MG TABLET PO SCH (22:00)
--- NOTE | 2017-09-18 23:38 | OPERATIVE REPORT E ---
Operative Report NAME: NAVARRO TEAGUE : 1960 AGE: 56Y DATE OF SURGERY: 09/18/2017 ROOM: 609 PREOPERATIVE DIAGNOSIS: Patient with poor veins for IV access and needed IV access for medications in the Intensive Care Unit. POSTOPERATIVE DIAGNOSIS: Patient with poor veins for IV access and needed IV access for medications in the Intensive Care Unit. OPERATION: Placement of right femoral vein triple lumen catheter under ultrasound guidance. ANESTHESIA: Local. SURGEON: SOO MCCORMICK M.D. INDICATION: This is a 56-year-old male with infarction of the right kidney, likely from emboli from the aorta. Here, the patient is being anticoagulated and therefore, it may be more dangerous to put a central line through the neck and subclavian veins and therefore, a femoral line was deemed to be safer. After appropriate consent obtained from the , the proximal was then performed. DESCRIPTION OF PROCEDURE: Patient was placed in supine position and the right groin prepped and draped in the usual sterile fashion. With the use of the ultrasound, the right femoral vein was then identified. Local anesthesia infiltrated on the skin just above the femoral vein. Femoral vein was then punctured and guidewire passed through the needle and to the direction of the inferior vena cava. The puncture site was then dilated and a triple lumen catheter inserted through the guidewire to a distance of about 19 cm. The puncture site was then anchored around with a 3-0 silk and the catheter tied over to keep in place. All the 3 ports were then aspirated of blood easily and injected saline easily. A transparent dressing placed over. The Biopatch placed at the insertion site earlier was placed. Patient tolerated procedure quite well. Nurses were instructed to use the triple lumen catheter. DICTATING PHYSICIAN: SOO MCCORMICK M.D. [id number] PHY#: [id number] ID: [id number] JOB#: [id number] ACCT: [id number] cc:SOO MCCORMICK M.D. >
[2017-09-19] MEDS: METRONIDAZOLE 500 MG/NS RTU 100 ML IV SCH ×2 (00:29→05:19)
[2017-09-19] MEDS: DEXTROSE 5%-WATER 250 ML with NOREPINEPHRINE BITARTRATE 4 MG IV PRN ×4 (00:30→10:02)
[2017-09-19] MEDS ORDERED: HEPARIN SOD (PORCINE) 1,000 UNIT/ML 10 ML VIAL IV PRN (00:55)
[2017-09-19 05:19] LABS: ABSOLUTE BASOPHILS # (AUTO) 0.1 10^3/uL (0.0-0.2); ABSOLUTE LYMPHOCYTES (AUTO) 1.9 10^3/uL (0.5-4.7); ABSOLUTE MONOCYTES (AUTO) 1.6 10^3/uL (0.1-1.4); ABSOLUTE NEUT (AUTO) 10.9 10^3/uL (1.7-8.2); EOSINOPHILS % (AUTO) 0.2 % (0-6); HEMATOCRIT 47.5 % (37.9-51.0); HEMOGLOBIN 15.6 g/dL (13.5-17.0); LYMPHOCYTES % (AUTO) 12.9 % (13-45); MEAN CORPUSCULAR HEMOGLOBIN 30.4 pg (27.0-33.4); MEAN CORPUSCULAR HGB CONC 32.7 g/dL (32.0-36.0); MEAN CORPUSCULAR VOLUME 93 fl (80-97); MONOCYTES % (AUTO) 11.1 % (3-13); PLATELET COUNT 222 10^3/uL (150-450); RED BLOOD COUNT 5.12 10^6/uL (4.35-5.55); RED CELL DISTRIBUTION WIDTH 16.5 % (11.5-14.0); SEGMENTED NEUTROPHILS % (AUTO) 74.8 % (42-78); TOTAL CELLS COUNTED % (AUTO) 100 %; WHITE BLOOD COUNT 14.6 10^3/uL (4.0-10.5)
[2017-09-19] MEDS: ONDANSETRON HCL INJ/PF 4 MG/2 ML SDV IV PRN ×4 (05:19→16:22)
[2017-09-19 05:56] LABS: ANION GAP 13 (5-19); BLOOD UREA NITROGEN 37 mg/dL (7-20); CALCIUM 8.3 mg/dL (8.4-10.2); CARBON DIOXIDE 24 mmol/L (22-30); CHLORIDE 98 mmol/L (98-107); GLUCOSE 159 mg/dL (75-110); POTASSIUM 4.7 mmol/L (3.6-5.0); SODIUM 134.5 mmol/L (137-145)
[2017-09-19] MEDS ORDERED: LANSOPRAZOLE 15 MG TAB.RAP.DR PO SCH (06:00)
[2017-09-19] MEDS: HYDROMORPHONE HCL INJ/PF 2 MG/ML AMPULE IV PRN (08:40)
[2017-09-19] MEDS: CIPROFLOXACIN 400 MG/D5W RTU 400 MG/200 ML RTUPB IV SCH (09:59)
[2017-09-19] MEDS: PANTOPRAZOLE SODIUM 40 MG VIAL IV SCH (10:02)
[2017-09-19] MEDS: LOSARTAN POTASSIUM 25 MG TABLET PO SCH (10:04)
[2017-09-19] MEDS: ASPIRIN 81 MG TABLET, CHEWABLE PO SCH (10:04)
[2017-09-19] MEDS: CLOPIDOGREL BISULFATE 75 MG TABLET PO SCH (10:04)
--- NOTE | 2017-09-19 12:21 | PDOC PROGRESS REPORT ---
Subjective Progress Note for:: 09/19/17 Subjective:: Patient lethargic but arousable, complains of pain in the abdomen this is acute pain, as well as "all over" which daughter states is from his Parkinson's disease. Daughter Fabby is at bedside. Patient and daughter want patient to be comfort care--He is currently hypotensive, on maximum dose of levophed 12. They would like Levophed titrated off and antibiotics on no treatment except for pain and comfort discontinue. If patient remains stable, they wish for him to be transferred to inpatient hospice. Reason For Visit: INTRACTABLE ABDOMINAL PAIN,DIVERTICULITIS Physical Exam Vital Signs: Temp Pulse Resp BP Pulse Ox 97.4 F 63 19 57/45 L 83 L 09/19/17 10:00 09/19/17 10:00 09/19/17 10:26 09/19/17 10:26 09/19/17 10:26 Intake & Output 09/18/17 09/19/17 09/20/17 06:59 06:59 06:59 Intake Total 978 2104 10 Output Total 700 Balance 978 1404 10 Weight 94.1 kg GEN: Chronically ill-appearing, well-developed male, no acute distress CV: RRR, NL S1S2 LUNGS: CTA bilaterally ABDOMEN Soft, mid abdominal tenderness, +BS EXTERMITIES: No edema, distal feet cold, pain in his bilateral lower extremities NEURO: Lethargic but arousable Results Laboratory Results: 09/19/17 05:00 09/19/17 05:00 09/18/17 09/19/17 09/19/17 17:00 05:00 05:00 WBC 11.4 H 14.6 H RBC 5.01 5.12 Hgb 14.9 15.6 Hct 46.3 47.5 MCV 92 93 MCH 29.7 30.4 MCHC 32.1 32.7 RDW 16.7 H 16.5 H Plt Count 198 222 Seg Neutrophils % 82.4 H 74.8 Lymphocytes % 7.6 L 12.9 L Monocytes % 9.6 11.1 Eosinophils % 0.0 0.2 Basophils % 0.4 1.0 Absolute Neutrophils 9.4 H 10.9 H Absolute Lymphocytes 0.9 1.9 Absolute Monocytes 1.1 1.6 H Absolute Eosinophils 0.0 0.0 Absolute Basophils 0.0 0.1 Sodium 134.5 L Potassium 4.7 Chloride 98 Carbon Dioxide 24 Anion Gap 13 BUN 37 H Creatinine 1.77 H Est GFR ( Amer) 48 L Est GFR (Non-Af Amer) 40 L Glucose 159 H Calcium 8.3 L 09/17/17 09/18/17 22:23 04:35 Troponin I 0.059 0.068 Impressions: Abdomen/Pelvis CT 09/17/17 11:24 IMPRESSION: 1. Abnormal appearance of the right kidney, most consistent with infarction or pyelonephritis. Recommend correlation with urinalysis. 2. Sigmoid diverticulitis. Abdomen Ultrasound 09/17/17 16:31 IMPRESSION: Portal vein is patent. Very limited study. Limited visualization of kidneys. Abdomen/Pelvis CTA 09/18/17 06:49 IMPRESSION: There is ectasia of the abdominal aorta and iliac vessels with vascular calcifications. Intraluminal thrombus is identified within the abdominal aorta as noted above with the configuration in the upper abdominal aorta could be related to a chronic aortic dissection with occlusion of the false lumen. In the lower abdominal aorta the intraluminal thrombus has a more circumferential distribution. Focal stenosis of the common iliac arteries right greater than left as noted above. The previously described geographic low attenuation in the right renal cortex is again identified and appears essentially unchanged. Again the differential possibilities would include infarction or pyelonephritis. Again recommend correlation with urinalysis. There is more extensive periaortic soft tissue stranding on the right as compared to the previous study. There is gaseous distention of multiple bowel loops most consistent with an ileus pattern. Other findings as noted above Assessment & Plan - Diagnosis (1) Thrombus of aorta Is this a current diagnosis for this admission?: Yes Plan: Intraluminal thrombus abdominal aorta as in CTA results above. (2) Parkinson disease Is this a current diagnosis for this admission?: Yes (3) Acute abdominal pain in right flank Is this a current diagnosis for this admission?: Yes (4) Acute on chronic systolic CHF (congestive heart failure) Is this a current diagnosis for this admission?: Yes (5) DNR (do not resuscitate) Is this a current diagnosis for this admission?: Yes (6) Defibrillator discharge Is this a current diagnosis for this admission?: Yes (7) Diverticulitis Is this a current diagnosis for this admission?: Yes (8) Acute kidney injury superimposed on chronic kidney disease Is this a current diagnosis for this admission?: Yes (9) Type I diabetes mellitus Qualifiers: Diabetes mellitus complication status: with unspecified complications Qualified Code(s): E10.8 - Type 1 diabetes mellitus with unspecified complications Is this a current diagnosis for this admission?: Yes - Plan Summary Plan Summary: We will respect patient's wishes. Comfort care orders placed. Case also discussed with Dr. Ricardo who evaluated the patient and concurred on aspirin and a second comfort care order per hospital policy. Discussed with daughter that patient will likely when the Levophed is tapered off, that he may not make it to an inpatient hospice facility, and she verbalized. Patient has verbalized understanding. However if he is stable after Levophed titrated off, plan is to discharge to inpatient hospice. Critical care time spent 45 minutes.
[2017-09-20 06:38] VITALS: BP 102/75
--- NOTE | 2017-09-20 08:52 | PDOC DISCHARGE SUMMARY ---
General - Admit/Disc Date/PCP Admission Date/Primary Care Provider: 09/17/17 16:33 Discharge Date: 09/20/17 - Discharge Diagnosis (1) Thrombus of aorta Is this a current diagnosis for this admission?: Yes (2) Parkinson disease Is this a current diagnosis for this admission?: Yes (3) Acute abdominal pain in right flank Is this a current diagnosis for this admission?: Yes (4) Acute on chronic systolic CHF (congestive heart failure) Is this a current diagnosis for this admission?: Yes (5) DNR (do not resuscitate) Is this a current diagnosis for this admission?: Yes (6) Defibrillator discharge Is this a current diagnosis for this admission?: Yes (7) Diverticulitis Is this a current diagnosis for this admission?: Yes (8) Acute kidney injury superimposed on chronic kidney disease Is this a current diagnosis for this admission?: Yes (9) Type I diabetes mellitus Is this a current diagnosis for this admission?: Yes - Additional Information Resuscitation Status: Do Not Resuscitate Discharge Diet: As Tolerated Discharge Activity: Activity As Tolerated Home Medications: Aspirin [Aspirin 81 mg Chewable Tablet] 81 mg PO DAILY 09/17/17 Carvedilol [Coreg 25 mg Tablet] 25 mg PO Q12 09/17/17 Clopidogrel Bisulfate [Clopidogrel] 75 mg PO DAILY 09/17/17 Furosemide [Lasix 40 mg Tablet] 40 mg PO QAM 09/17/17 Losartan Potassium [Cozaar 25 mg Tablet] 25 mg PO DAILY 09/17/17 Omeprazole 20 mg PO DAILY 09/17/17 Pravastatin Sodium [Pravachol] 20 mg PO DAILY 09/17/17 History of Present Illness History of Present Illness: NAVARRO TEAGUE is a 56 year old male was brought to the [facility] ED with 1 day history of sudden onset of severe and intractable right flank pain radiating to the right side of the abdomen. Patient's reported that he had hemoptysis for the past 2 days prior with some increase in his usual shortness of breath; he has a history of COPD O2 dependent 2 L/min; chronic smoking; chronic CHF; status post pacemaker. In the ED CT abdomen and pelvis was suggestive of an acute diverticulitis and possibly right renal infarct. Patient was treated with several doses of Dilaudid without much improvement in pain; Cipro and Flagyl were administered; Patient was subsequently admitted on the hospitalist service to [facility] for further evaluation and care. ER physician also reported that the patient's defibrillator went off the ED; patient was in SVT but this change to sinus tachycardia. Hospital Course Hospital Course: There was concern for acute diverticulitis and pyelonephritis and patient was treated with Flagyl and Cipro. After discussion with the radiologist, the hospitalist Dr. Collazo ordered a CTA of the kidney to rule out renal infarct. This unfortunately revealed a large abdominal aortic thrombosis and cannot rule out dissection. Dr. Collazo discussed the case with vascular surgery Dr. Jimenez and patient was thought not to be a candidate for intervention. Advised IV heparin. Patient was transferred to ICU and heparin drip started. Patient also had recurrent nonsustained VT and was started on magnesium and amiodarone per cardiology, Dr. Dutta's, recommendation. Patient hospital course also significant for hypotension requiring Levophed vasopressor. Unfortunately patient's blood pressure remained low even at maximum dose of Levophed. His prognosis was thought to be poor, given his comorbidities. Patient and decided on no more aggressive treatment. They desired for vasopressors t be titrated off, heparin and all meds except those required for comfort to be stopped, and if patient achieved some stabilization, for transfer to inpatient hospice and possible transition to home. Today, patient is awake. Reports feeling a little better, especially with pain , as he could now receive medications without concern for blood pressure. He and his are still interested in hospice care and he is being discharged to inpatient hospice. Further orders per the hospice facility. Physical Exam Vital Signs: Temp Pulse Resp BP Pulse Ox 97.5 F 67 17 102/75 93 09/19/17 20:00 09/19/17 20:00 09/20/17 06:21 09/20/17 06:21 09/20/17 06:00 Intake & Output 09/19/17 09/20/17 09/21/17 06:59 06:59 06:59 Intake Total 2104 40 Output Total 700 300 Balance 1404 -260 Weight 94.1 kg 93.3 kg GEN: Chronically ill-appearing, well-developed male, in no acute distress CV: RRR, NL S1S2 LUNGS:few crackles bases bilaterally ABDOMEN Soft, mid abdominal tenderness, +BS EXTERMITIES: 2+ edema, tenderness bilateral lower extremities NEURO: Awake, oriented to name and place, no focal weakness Results Laboratory Results: 09/19/17 05:00 09/19/17 05:00 09/17/17 09/18/17 22:23 04:35 Troponin I 0.059 0.068 Impressions: Abdomen/Pelvis CT 09/17/17 11:24 IMPRESSION: 1. Abnormal appearance of the right kidney, most consistent with infarction or pyelonephritis. Recommend correlation with urinalysis. 2. Sigmoid diverticulitis. Abdomen Ultrasound 09/17/17 16:31 IMPRESSION: Portal vein is patent. Very limited study. Limited visualization of kidneys. Abdomen/Pelvis CTA 09/18/17 06:49 IMPRESSION: There is ectasia of the abdominal aorta and iliac vessels with vascular calcifications. Intraluminal thrombus is identified within the abdominal aorta as noted above with the configuration in the upper abdominal aorta could be related to a chronic aortic dissection with occlusion of the false lumen. In the lower abdominal aorta the intraluminal thrombus has a more circumferential distribution. Focal stenosis of the common iliac arteries right greater than left as noted above. The previously described geographic low attenuation in the right renal cortex is again identified and appears essentially unchanged. Again the differential possibilities would include infarction or pyelonephritis. Again recommend correlation with urinalysis. There is more extensive periaortic soft tissue stranding on the right as compared to the previous study. There is gaseous distention of multiple bowel loops most consistent with an ileus pattern. Other findings as noted above Qualifiers - * PATEINT BEING DISCHARGED WITH ANY OF THE FOLLOWING DIAGNOSIS?: No VTE patient discharged on overlapping Therapy?: No Plan Discharge Plan: Patient being transferred to inpatient hospice. Further management and orders per facility/hospice attending physician.
[2017-09-20] MEDS: LORAZEPAM INJ 2 MG/1 ML VIAL IV PRN (09:17)
[2017-09-20] MEDS: HYDROMORPHONE HCL INJ/PF 2 MG/ML AMPULE IV PRN (09:17)
== END 2017-09-20 09:30 | disposition hospice, inpatient (51) | DRG 299 ==
LOC: ER 11:08 → UNDOADMIN 16:23 → EH 16:23 → 3N 18:35 → ICU 09-18 17:36
PROVIDERS: ADMIT Emergency Medicine; ATTEND Emergency Medicine
PROC: 5A09457 Assistance with Respiratory Ventilation, 24-96 Consecutive Hours, Continuous Positive Airway Pressure (ICD-10-PCS; 2017-09-17)
PROC: 06H033Z Insertion of Infusion Device into Inferior Vena Cava, Percutaneous Approach (ICD-10-PCS; principal; 2017-09-18)
PROC: B549ZZA Ultrasonography of Inferior Vena Cava, Guidance (ICD-10-PCS; 2017-09-18)
DX: I74.09 Other arterial embolism and thrombosis of abdominal aorta (principal); I50.23 Acute on chronic systolic (congestive) heart failure; G93.40 Encephalopathy, unspecified; N17.9 Acute kidney failure, unspecified; I13.0 Hypertensive heart and chronic kidney disease with heart failure and stage 1 through stage 4 chronic kidney disease, or unspecified chronic kidney disease; K57.92 Diverticulitis of intestine, part unspecified, without perforation or abscess without bleeding; E10.9 Type 1 diabetes mellitus without complications; G20 Parkinson's disease; Z51.5 Encounter for palliative care; J44.9 Chronic obstructive pulmonary disease, unspecified; E78.5 Hyperlipidemia, unspecified; K21.9 Gastro-esophageal reflux disease without esophagitis; F17.200 Nicotine dependence, unspecified, uncomplicated; F03.90 Unspecified dementia, unspecified severity, without behavioral disturbance, psychotic disturbance, mood disturbance, and anxiety; E10.22 Type 1 diabetes mellitus with diabetic chronic kidney disease; I95.9 Hypotension, unspecified; F43.10 Post-traumatic stress disorder, unspecified; I87.2 Venous insufficiency (chronic) (peripheral); Z66 Do not resuscitate; I25.2 Old myocardial infarction; Z99.81 Dependence on supplemental oxygen; Z95.810 Presence of automatic (implantable) cardiac defibrillator; Z88.0 Allergy status to penicillin; Z82.49 Family history of ischemic heart disease and other diseases of the circulatory system
CPT/HCPCS: 36415; 74174; 74177; 76700; 80048; 80053; 80061; 80076; 80307; 81001; 82803; 82962; 83690; 83735; 83880; 84439; 84443; 84484; 85025; 85027; 85379; 85610; 85730; 87040; 87086; 93005; 93010; 93976; 94660; 96361; 96374; 96375; 96376; 99285; C1751; J0282; J0744; J1170; J1644; J1650; J1815; J1940; J2060; J2405; J3010; J3475; J3490; J7030; J7060; S0164